=== PATIENT | female | born 1965 | race Caucasian/White ===

== ENCOUNTER → 2016-07-18 | Outpatient (CLI) | payer MEDICARE, OTHER ==
[2016-07-18 13:56] VITALS: BP 144/68; PULSE 53; RESP 14; TEMP 98.4
[2016-07-18 15:03] VITALS: BMI 39.2
--- NOTE | 2016-09-02 21:34 | P.PN ---
Progress Note - Text DATE OF SERVICE: 07/18/2016 CHIEF COMPLAINT: Follow-up gastric bypass. HISTORY OF PRESENT ILLNESS: Yessy Buchanan is a 51-year-old female who is status post Mynor-en-Y gastric bypass in May 24, 2015. She is more than a year and a few months out. At her height of 5 feet 4-3/4 inches frame her highest weight was 341 pounds. Today she comes in weighing 235 pounds. Her ideal body weight is 149 pounds. She has lost 106 pounds. Percent excess weight loss is 55%. Body mass index is reduced from 57.3 down to 39.4. Total BMI point reduction is 17.8. Since her last visit now 3 months ago, she has lost another 5 pounds. She reports that she is no longer drinking pop. She has decreased her intake of sugar. She reports no more problems with falling or fainting. She denies any further constipation. No reports of dumping syndrome. Her personal goal is to lose another 40 pounds. She denies any gastroesophageal reflux disease. Her diabetes is completely resolved. She now reports new onset headaches. PAST MEDICAL HISTORY: 1. Diabetes type 2, resolved. 2. Osteoarthritis of the bilateral knees. 3. Osteoarthritis of the lower back. 4. Iron deficiency anemia. 5. Chronic recurrent deep venous thromboses over 4 events. 6. Depression. 7. Vitamin D deficiency. 8. Vitamin B12 deficiency. 9. History of brain disorder with cysts requiring surgery. 10. Gastroesophageal reflux disease, resolved. 11. History obstructive sleep apnea, improved. PAST SURGICAL HISTORY: 1. She reports lithotripsy for kidney stones at least 5 times. 2. Hysterectomy. 3. Tonsillectomy. 4. Bilateral cataract eye extraction. 5. Removal of benign growths along the scalp. 6. History of fatty tumor removal from the left shoulder. 7. Status post Mynor-en-Y gastric bypass. 8. Colonoscopy. MEDICATIONS: 1. Xarelto. 2. MiraLax. 3. Paxil. 4. Multivitamin. 5. Vitamin D. 6. Calcium citrate. 7. Dulcolax. 8. Aspirin. ALLERGIES: 1. COMPAZINE. 2. GEODON. 3. TOMATOES. SOCIAL HISTORY: Former tobacco user. FAMILY HISTORY: Pertinent for morbid obesity including gallbladder disease. REVIEW OF SYSTEMS: CONSTITUTIONAL: Highest weight of 341 pounds for a 5 foot 4-3/4 inches. Weight is reduced to 235 pounds. [place] body weight of 149 pounds. Weight loss of 106 pounds. Percent excess weight loss of 55%. She still is 86 pounds overweight. Body mass index reduced from 57.3 down to 39.5. Total BMI point reduction is 17.8. ENDOCRINE: Resolved diabetes type 2. GASTROINTESTINAL: No reports of dumping syndrome. Gastroesophageal reflux disease, resolved. RESPIRATORY: Improved obstructive sleep apnea. MUSCULOSKELETAL: Reports diffuse osteoarthritis of the lower back. NEURO: Reports dizziness. She has had previous MRI work-up negative for acute stroke. PSYCH: History of adverse event from Paxil for which she is being changed to different antidepressant. HEMATOLOGIC: History of prior blood clots, which she has undergone evaluation with her construction accountant and has been advised to continue during the perioperative period. HEENT: Denies any troubles with vision or hearing. CARDIOVASCULAR: History of heart arrhythmia. PHYSICAL EXAM: VITAL SIGNS: 98.4, 53, 14, 144/68; 5 feet 4-3/4 inches, weighing 235 pounds. Body mass index 39.5. ABDOMEN: Soft, nontender, nondistended. Pannus extends over pubis over 5 cm. No palpable incisional hernias. Mild panniculitis. MUSCULOSKELETAL: No clubbing, cyanosis, or edema. NEURO: No focal or lateralizing signs. Cranial nerves II through XII grossly within normal limits. GENERAL: Well-developed, pleasant female in no acute distress. CHEST: Nonlabored respirations. Equal bilateral excursions. CARDIOVASCULAR: Regular rate and rhythm. HEENT: No sclerae icterus. Extraocular movements are grossly intact. Moist buccal mucosa. NECK: Supple without lymphadenopathy. PSYCH: Appropriate affect. Alert and oriented to person, place and time. Labs are: Previous labs demonstrate hemoglobin was 12.8. Current labs are pending. ASSESSMENT: 1. Morbid obesity due to excess caloric intake. 2. Body mass index reduced from 57.3 down to 39.5. 3. Status post Mynor-en-Y gastric bypass. 4. Diabetes type 2, resolved. 5. Gastroesophageal reflux disease, resolved. 6. Hypertensive heart disease with history of cardiomyopathy, chronic. 7. Depression without recent psychosis. 8. Osteoarthritis of the knees secondary to morbid obesity. 9. History of thromboembolic events. 10. Hypertriglyceridemia. 11. Obstructive sleep apnea, improved. 12. Thiamine deficiency. 13. Chronic constipation. 14. Secondary hyperparathyroidism. 15. Low TSH. 16. History of right upper quadrant abdominal pain. 17. Status post massive weight loss 106 pounds. 18. History of dizziness with possible vestibular problem. 19. Chronic lower back pain. PLAN: 1. On exam she has panniculitis, recommend nystatin powder. 2. She is seeking additional weight loss, which would be of benefit. She has already lost over 105 pounds. 3. She does reports trouble sleeping at night including headaches. She actually should benefit from re-evaluation of obstructive sleep apnea with sleep study. 4. Recommend close observation until her goal weight loss is achieved. 5. Recommended follow-up in 3 to 5 months.
== END | disposition home or self-care (01) ==
LOC: BARWHC3 13:16
PROVIDERS: ATTEND Surgery Plastic and Reconstructive Surgery
DX: Z71.3 Dietary counseling and surveillance (principal); Z68.39 Body mass index [BMI] 39.0-39.9, adult; E66.01 Morbid (severe) obesity due to excess calories
CPT/HCPCS: 97803; G0463; 99211

== ENCOUNTER 2016-10-03 15:11 | Inpatient (IN) | payer MEDICARE, OTHER ==
[2016-10-03 16:38] VITALS: RESP 16
[2016-10-03 17:06] VITALS: BMI 39.8
[2016-10-03] MEDS ORDERED: ONDANSETRON 4 MG/2 ML VIAL IVP PRN (17:41)
[2016-10-03] MEDS ORDERED: NALOXONE 0.4 MG/ML 1 ML VIAL IV PRN (17:41)
[2016-10-03] MEDS ORDERED: SODIUM CHLORIDE 0.9% 2,000 ML IV ONE (17:58)
--- NOTE | 2016-10-03 18:20 | XR ---
EXAMINATION TYPE: XR abdomen 2V DATE OF EXAM: 10/03/2016 6:10 PM COMPARISON: NONE HISTORY: Abdominal pain TECHNIQUE: 3 views FINDINGS: There is no sign of intestinal obstruction or pneumoperitoneum. Fecal pattern is normal. Th ere are clips from cholecystectomy. There is no evidence of a mass. There are phleboliths in the pelv is. Lung bases are clear. There are no pathologic calcifications over the kidneys. IMPRESSION: Nonacute abdomen.
[2016-10-03 19:30] LABS: Magnesium 1.6 mg/dL (1.6-2.3); Phosphorous 3.3 mg/dL (2.5-4.5)
[2016-10-03] MEDS: PARoxetine 20 MG TAB PO SCH (23:16)
[2016-10-03 23:28] LABS: Basophils % (A) 1 %; Eosinophils # (A) 0.2 k/uL (0-0.7); Eosinophils % (A) 4 %; HCT 36.8 % (34.0-46.0); HDW 2.13; HGB 11.4 gm/dL (11.4-16.0); Luc # (Auto) 0.15; Luc % (Auto) 2; Lymphocytes # (A) 2.1 k/uL (1.0-4.8); Lymphocytes % (A) 34 %; MCH 27.3 pg (25.0-35.0); Mean Platelet Volume 8.7; Monocytes # (A) 0.5 k/uL (0-1.0); Monocytes % (A) 8 %; Neutrophils # (A) 3.2 k/uL (1.3-7.7); Neutrophils % (A) 52 %; RBC 4.18 m/uL (3.80-5.40); RDW 14.6 % (11.5-15.5); WBC 6.1 k/uL (3.8-10.6); WBC (Perox) 5.94
[2016-10-03 23:33] LABS: INR 1.2 (<1.1); Partial Thromboplastin Time 24.1 sec (22.0-30.0); Prothrombin Time 11.5 sec (9.0-12.0)
[2016-10-03 23:37] LABS: ALT 23 U/L (9-52); AST 21 U/L (14-36); Alkaline Phosphatase 73 U/L (38-126); Anion Gap 6 mmol/L; Blood Urea Nitrogen 10 mg/dL (7-17); Calcium 8.9 mg/dL (8.4-10.2); Carbon Dioxide 28 mmol/L (22-30); Chloride 105 mmol/L (98-107); Glucose 97 mg/dL (74-99); Non-African American GFR(MDRD) >60 (>60 ml/min/1.73 sqM); Potassium 3.6 mmol/L (3.5-5.1); Sodium 139 mmol/L (137-145); Total Bilirubin 0.6 mg/dL (0.2-1.3); Total Protein 6.1 g/dL (6.3-8.2)
[2016-10-04] MEDS: SODIUM CHLORIDE 0.9% 1,000 ML IV SCH (07:13)
[2016-10-04 07:32] LABS: Basophils % (A) 1 %; CH 27.7; CHCM 31.6; Eosinophils # (A) 0.2 k/uL (0-0.7); Eosinophils % (A) 5 %; HCT 35.4 % (34.0-46.0); HDW 2.08; HGB 11.3 gm/dL (11.4-16.0); Luc # (Auto) 0.14; Luc % (Auto) 3; Lymphocytes # (A) 1.7 k/uL (1.0-4.8); Lymphocytes % (A) 36 %; MCHC 31.8 g/dL (31.0-37.0); MCV 88.1 fL (80.0-100.0); Mean Platelet Volume 8.7; Monocytes # (A) 0.4 k/uL (0-1.0); Monocytes % (A) 8 %; Neutrophils # (A) 2.3 k/uL (1.3-7.7); Neutrophils % (A) 48 %; RBC 4.02 m/uL (3.80-5.40); RDW 14.5 % (11.5-15.5); WBC 4.8 k/uL (3.8-10.6); WBC (Perox) 4.83
[2016-10-04] MEDS: ENOXAPARIN 40 MG/0.4 ML SYRINGE SQ SCH (07:41)
[2016-10-04] MEDS: PANTOPRAZOLE 40 MG/10 ML VIAL IV SCH (07:41)
[2016-10-04] MEDS: ASPIRIN 81 MG CHEW PO SCH (07:41)
[2016-10-04 07:49] LABS: Hemoglobin A1C 5.6 % (4.2-6.1)
[2016-10-04 08:03] LABS: ALT 28 U/L (9-52); AST 18 U/L (14-36); Alkaline Phosphatase 73 U/L (38-126); Anion Gap 6 mmol/L; Blood Urea Nitrogen 8 mg/dL (7-17); Calcium 8.4 mg/dL (8.4-10.2); Carbon Dioxide 27 mmol/L (22-30); Chloride 108 mmol/L (98-107); Glucose 83 mg/dL (74-99); Magnesium 1.5 mg/dL (1.6-2.3); Non-African American GFR(MDRD) >60 (>60 ml/min/1.73 sqM); Phosphorous 3.8 mg/dL (2.5-4.5); Potassium 3.6 mmol/L (3.5-5.1); Sodium 141 mmol/L (137-145); Total Bilirubin 0.6 mg/dL (0.2-1.3); Total Protein 5.6 g/dL (6.3-8.2)
[2016-10-04] MEDS ORDERED: RX INFO: IV CONTRAST WAS GIVEN 1 EACH MISC MISCELLANE PRN (08:09)
--- NOTE | 2016-10-04 08:18 | P.GSHP ---
History of Present Illness H&P Date: 10/03/16 Chief Complaint: Abdominal pain with history of bowel obstruction CHIEF COMPLAINT: Abdominal pain with history of bowel obstruction HISTORY OF PRESENT ILLNESS: Yessy Buchanan is a 51-year-old female who is status post Mynor-en-Y gastric bypass in May 24, 2015. At her height of 5 feet 4-3/4 inches frame her highest weight was 341 pounds. Today she comes with 120 pound weight loss. She reports one-month history of intermittent abdominal pain of the right lower quadrant including right upper quadrant. She states the pain is pulling tugging sensation. She reports at the time of her abdominal pain, she has inability to eat or drink. She reports poor fluid intake in the last several days including chronic nausea. She reports intermittent abdominal gas bloat for which she had gone to her local ER in [place] for similar issues. Now she presents moderate severe abdominal pain including poor oral intake. PAST MEDICAL HISTORY: 1. Diabetes type 2, resolved. 2. Osteoarthritis of the bilateral knees. 3. Osteoarthritis of the lower back. 4. Iron deficiency anemia. 5. Chronic recurrent deep venous thromboses over 4 events. 6. Depression. 7. Vitamin D deficiency. 8. Vitamin B12 deficiency. 9. History of brain disorder with cysts requiring surgery. 10. Gastroesophageal reflux disease, resolved. 11. History obstructive sleep apnea, improved. PAST SURGICAL HISTORY: 1. She reports lithotripsy for kidney stones at least 5 times. 2. Hysterectomy. 3. Tonsillectomy. 4. Bilateral cataract eye extraction. 5. Removal of benign growths along the scalp. 6. History of fatty tumor removal from the left shoulder. 7. Status post Mynor-en-Y gastric bypass. 8. Colonoscopy. MEDICATIONS: See list. ALLERGIES: 1. COMPAZINE. 2. GEODON. 3. TOMATOES. SOCIAL HISTORY: Former tobacco user. FAMILY HISTORY: Pertinent for morbid obesity including gallbladder disease. REVIEW OF SYSTEMS: CONSTITUTIONAL: Highest weight of 341 pounds for a 5 foot 4-3/4 inches. [place] body weight of 149 pounds. ENDOCRINE: Resolved diabetes type 2. GASTROINTESTINAL: No reports of dumping syndrome. Gastroesophageal reflux disease, resolved. Now with history of bowel obstruction. RESPIRATORY: Improved obstructive sleep apnea. MUSCULOSKELETAL: Reports diffuse osteoarthritis of the lower back. NEURO: Reports dizziness. She has had previous MRI work-up negative for acute stroke. PSYCH: History of adverse event from Paxil for which she is being changed to different antidepressant. HEMATOLOGIC: History of prior blood clots, which she has undergone evaluation with her interlocking tower operator and has been advised to continue during the perioperative period. HEENT: Denies any troubles with vision or hearing. CARDIOVASCULAR: History of heart arrhythmia. PHYSICAL EXAM: VITAL SIGNS: Stable. ABDOMEN: Soft with tenderness along the right upper quadrant and right lower quadrant. No peritoneal signs. Mild abdominal distention. MUSCULOSKELETAL: No clubbing, cyanosis, or edema. NEURO: No focal or lateralizing signs. Cranial nerves II through XII grossly within normal limits. GENERAL: Well-developed, pleasant female in no acute distress. CHEST: Nonlabored respirations. Equal bilateral excursions. CARDIOVASCULAR: Regular rate and rhythm. HEENT: No sclerae icterus. Extraocular movements are grossly intact. Moist buccal mucosa. NECK: Supple without lymphadenopathy. PSYCH: Appropriate affect. Alert and oriented to person, place and time. SKIN: Skin turgor consistent with acute dehydration. Labs: PENDING ASSESSMENT: 1. Right upper quadrant abdominal pain. 2. Right lower quadrant abdominal pain. 3. History of bowel obstruction. 4. History of gastric bypass with risk of intussusception, volvulus and intestinal adhesions. 5. Morbid obesity due to excess caloric intake. PLAN: 1. Recommend inpatient admission anticipated over 2 nights with history of bowel obstruction as well as increasing abdominal pain and dehydration. 2. Recommend IV fluid hydration. 3. Abdominal films with CT of the abdomen pelvis to follow. 4. Recommend surgical intervention with laparoscopic list of adhesions possible bowel resection. 5. DVT prophylaxis. 6. Antibiotic prophylaxis. 7. Comprehensive metabolic panel including CBC and correction of electrolytes. Past Medical History Past Medical History: Diabetes Mellitus, Deep Vein Thrombosis (DVT), Pulmonary Embolus (PE), Skin Disorder, Sleep Apnea/CPAP/BIPAP Additional Past Medical History / Comment(s): ESTHER ANKLE/foot swelling, heart murmur, kidney stones, wears O2 at night at 2L. VARICOSE VEIN POSS. COLD SORE ON UPPER LIP. RECOVERING FROM BED BUGS, CLEARED BY DR LAST WEEK WHEN HERE. History of Any Multi-Drug Resistant Organisms: None Reported Past Surgical History: Bariatric Surgery, Hysterectomy, Tonsillectomy Additional Past Surgical History / Comment(s): cataract removal both eyes, benign growths removed from head, fatty tumor removed from left shoulder, lithotripsy x5, Mynor-en Y-Gastric bypass 05-24-2015 Past Anesthesia/Blood Transfusion Reactions: Family History of Problems w/ Anesthesia, Motion Sickness Additional Past Anesthesia/Blood Transfusion Reaction / Comment(s): BROTHER HAS PROBLEMS, SLOW AWAKENING FROM ANESTHESIA. Past Psychological History: Anxiety, Depression Smoking Status: Never smoker Past Alcohol Use History: None Reported Additional Past Alcohol Use History / Comment(s): SMOKED SOCIALLY [id number] EST. Past Drug Use History: None Reported - Past Family History Father History Unknown: Yes Family Medical History: No Reported History Mother Family Medical History: Congestive Heart Failure (CHF), Diabetes Mellitus, Hypertension Additional Family Medical History / Comment(s): mental disorder, alcoholism, Medications and Allergies Home Medications Medication Instructions Recorded Confirmed Type Aspirin 81 mg PO DAILY 12/08/14 10/03/16 History Multivitamins, Thera [Multivitamin] 1 tab PO DAILY 07/06/15 10/03/16 History PARoxetine HCL [Paxil] 20 mg PO HS 07/18/16 10/03/16 History Calcium Citrate 500 mg PO TID 10/03/16 10/03/16 History Allergies Allergy/AdvReac Type Severity Reaction Status Date / Time metoclopramide HCl AdvReac Unknown Verified 10/03/16 19:28 [From Reglan] prochlorperazine edisylate AdvReac Unknown Verified 10/03/16 19:28 [From Compazine] prochlorperazine maleate AdvReac Unknown Verified 10/03/16 19:28 [From Compazine] ziprasidone HCl [From Geodon] AdvReac Unknown Verified 10/03/16 19:28 ziprasidone mesylate AdvReac Unknown Verified 10/03/16 19:28 [From Geodon] bleach AdvReac Dyspnea Uncoded 10/03/16 14:13 tomatoes AdvReac Itching Uncoded 10/03/16 14:13 Surgical - Exam Vital Signs Temp Pulse Resp BP Pulse Ox 97.7 F 55 L 16 126/60 98 10/03/16 16:36 10/03/16 16:36 10/03/16 16:36 10/03/16 16:36 10/03/16 16:36 Results - Labs 10/04/16 06:33 10/04/16 06:33 Abnormal Lab Results - Last 24 Hours (Table) 10/03/16 10/04/16 10/04/16 Range/Units 23:14 06:33 06:33 Hgb 11.3 L (11.4-16.0) gm/dL Chloride 108 H (98-107) mmol/L Creatinine 0.40 L 0.43 L (0.52-1.04) mg/dL Magnesium 1.5 L (1.6-2.3) mg/dL Total Protein 6.1 L 5.6 L (6.3-8.2) g/dL Albumin 3.3 L 2.9 L (3.5-5.0) g/dL Diabetes panel 10/03/16 10/03/16 10/04/16 Range/Units 23:14 23:14 06:33 Sodium 139 141 (137-145) mmol/L Potassium 3.6 3.6 (3.5-5.1) mmol/L Chloride 105 108 H (98-107) mmol/L Carbon Dioxide 28 27 (22-30) mmol/L BUN 10 8 (7-17) mg/dL Creatinine 0.40 L 0.43 L (0.52-1.04) mg/dL Glucose 97 83 (74-99) mg/dL Hemoglobin A1c 5.6 (4.2-6.1) % Calcium 8.9 8.4 (8.4-10.2) mg/dL AST 21 18 (14-36) U/L ALT 23 28 (9-52) U/L Alkaline Phosphatase 73 73 (38-126) U/L Total Protein 6.1 L 5.6 L (6.3-8.2) g/dL Albumin 3.3 L 2.9 L (3.5-5.0) g/dL Calcium panel 10/03/16 10/03/16 10/04/16 Range/Units 19:01 23:14 06:33 Calcium 8.9 8.4 (8.4-10.2) mg/dL Phosphorus 3.3 3.8 (2.5-4.5) mg/dL Albumin 3.3 L 2.9 L (3.5-5.0) g/dL Pituitary panel 10/03/16 10/04/16 Range/Units 23:14 06:33 Sodium 139 141 (137-145) mmol/L Potassium 3.6 3.6 (3.5-5.1) mmol/L Chloride 105 108 H (98-107) mmol/L Carbon Dioxide 28 27 (22-30) mmol/L BUN 10 8 (7-17) mg/dL Creatinine 0.40 L 0.43 L (0.52-1.04) mg/dL Glucose 97 83 (74-99) mg/dL Calcium 8.9 8.4 (8.4-10.2) mg/dL Adrenal panel 10/03/16 10/04/16 Range/Units 23:14 06:33 Sodium 139 141 (137-145) mmol/L Potassium 3.6 3.6 (3.5-5.1) mmol/L Chloride 105 108 H (98-107) mmol/L Carbon Dioxide 28 27 (22-30) mmol/L BUN 10 8 (7-17) mg/dL Creatinine 0.40 L 0.43 L (0.52-1.04) mg/dL Glucose 97 83 (74-99) mg/dL Calcium 8.9 8.4 (8.4-10.2) mg/dL Total Bilirubin 0.6 0.6 (0.2-1.3) mg/dL AST 21 18 (14-36) U/L ALT 23 28 (9-52) U/L Alkaline Phosphatase 73 73 (38-126) U/L Total Protein 6.1 L 5.6 L (6.3-8.2) g/dL Albumin 3.3 L 2.9 L (3.5-5.0) g/dL
[2016-10-04] MEDS: IOHEXOL 350 MG/ML 25 ML BOTTLE (ORAL USE) PO PRN ×2 (08:38→09:23)
--- NOTE | 2016-10-04 11:16 | CT ---
EXAMINATION TYPE: CT abdomen pelvis w con DATE OF EXAM: 10/04/2016 11:07 AM COMPARISON: NONE HISTORY: Jc with nausea CT DLP: 2301.3 mGycm CONTRAST: CT scan of the abdomen and pelvis is performed with Oral Contrast and with IV Contrast, patient injec jackie with 100 mL of Omnipaque 300. FINDINGS: LUNG BASES-: No visible nodule. No infiltrate. Small bilateral pleural effusions are noted. There is evidence of mild cardiomegaly. LIVER/GB: Cholecystectomy clips are in place. No space occupying hepatic lesion. Biliary tree is o f normal caliber. PANCREAS: No inflammation. No distinct mass. SPLEEN: No splenic enlargement. No lesion seen. ADRENALS: No nodule. No thickening. KIDNEYS/BLADDER: No hydronephrosis. No nephrolithiasis. No disctinct renal mass. Urinary bladder g rossly unremarkable. BOWEL: Normal appendix. Normal bowel caliber. No inflammation. Gastric bypass procedure noted. No e vidence for leak or abscess. No obstructive change seen. GENITAL ORGANS: 2.1 cm left ovarian cyst. Changes of prior hysterectomy. LYMPH NODES: No greater than 1cm abdominal or pelvic lymph nodes are appreciated. AORTA: No significant abnormality. OSSEOUS STRUCTURES: No significant abnormality is seen. OTHER: No significant additional abnormality is seen. IMPRESSION: 1. Gastric bypass procedure without complicating factor. 2. Small pleural effusions. 3. Nonspecific left ovarian cyst.
--- NOTE | 2016-10-04 11:53 | P.PN ---
Subjective A 51-year-old female being seen this morning and examined. Patient states abdominal pain feels improved. Patient points to the reference point of the right upper quadrant as to where the pain has been. Patient is a history of having for the last month intermittent abdominal discomfort in the right lower quadrant radiating to the right upper. Patient states that she's had chronic nausea sensation. Patient does state that she is tolerating the diet no stool but is passing gas rectally Patient is status post claudia-en-Y gastric bypass done in April 2015. Patient has lost a total of 120 pounds since the surgery. The CAT scan of the abdomen and pelvis shows gastric bypass procedure without comp looking factor small pleural effusion no acute findings Objective - Vital Signs Vital signs: Vital Signs Temp 98.3 F 10/04/16 07:37 Pulse 49 L 10/04/16 08:00 Resp 16 10/04/16 08:00 BP 137/72 10/04/16 07:37 Pulse Ox 96 10/04/16 07:37 Intake & Output 10/03/16 10/04/16 10/04/16 18:59 06:59 18:59 Intake Total 180 Balance 180 Weight 105.233 kg 105.233 kg Intake: Oral 180 Other: # Voids 2 2 - Exam Physical exam 51-year-old female resting in bed does not appear in acute distress pleasant cooperative Lungs essentially clear adequate air movement on room air Heart S1-S2 audible regular Abdomen obese soft nontender bowel tones present no reports of nausea vomiting urinating no difficulty Extremities no edema - Labs CBC & Chem 7: 10/04/16 06:33 10/04/16 06:33 Labs: Abnormal Lab Results - Last 24 Hours (Table) 10/03/16 10/04/16 10/04/16 Range/Units 23:14 06:33 06:33 Hgb 11.3 L (11.4-16.0) gm/dL Chloride 108 H (98-107) mmol/L Creatinine 0.40 L 0.43 L (0.52-1.04) mg/dL Magnesium 1.5 L (1.6-2.3) mg/dL Total Protein 6.1 L 5.6 L (6.3-8.2) g/dL Albumin 3.3 L 2.9 L (3.5-5.0) g/dL Assessment and Plan Plan: Impression Present on admission right upper and lower intermittent quadrant abdominal pain History of a bowel obstruction Morbid obesity due to excessive caloric intake History of gastric bypass with risk of intussusception, volvulus and intestinal adhesions. And deficiency anemia Osteoarthritis of the bilateral knees Chronic recurrent DVTs over 4 events Gastroesophageal reflux disease resolved Obstructive sleep apnea improved Plan DVT and GI prophylaxis on Lovenox and protonix IV fluid 115 hours Scheduled for a laparoscopic lysis of adhesions possible bowel resection on the 05 of October Pain control Further recommendations pending will follow The above dictated assessment and findings were discussed with dr glasgow Impression and the plan of care have been dictated as directed. Gracie Deutsch nurse practitioner acting as a scribe for dr glasgow
[2016-10-04 16:55] LABS: Total Iron Binding Capacity 264 ug/dL (265-497)
[2016-10-04] MEDS: MAGNESIUM SULFATE-D5W PMX 1 GM in DEXTROSE/WATER 1 100ML.BAG IVPB SCH ×2 (17:08→18:28)
[2016-10-04 17:36] LABS: Vitamin B12 593 pg/mL (239-931)
[2016-10-04] MEDS: HYDROmorphone 1 MG/ML 1 ML SYRINGE IV PRN (23:32)
[2016-10-04] MEDS: PARoxetine 20 MG TAB PO SCH (23:43)
[2016-10-05] MEDS ORDERED: MIDAZOLAM 2 MG/2 ML VIAL IV PRN (06:01)
[2016-10-05] MEDS ORDERED: LACTATED RINGERS 1,000 ML IV SCH (06:01)
[2016-10-05] MEDS: PANTOPRAZOLE 40 MG/10 ML VIAL IV SCH (07:52)
[2016-10-05] MEDS: HYDROmorphone 1 MG/ML 1 ML SYRINGE IV PRN ×2 (10:51→15:03)
[2016-10-05] MEDS ORDERED: ACETAMINOPHEN IV (For NPO) 1,000 MG in EMPTY BAG 1 BAG IVPB PRN (10:54)
[2016-10-05] MEDS: SODIUM CHLORIDE 0.9% 1,000 ML IV SCH (15:05)
[2016-10-05] MEDS: ASPIRIN 81 MG CHEW PO SCH (15:08)
[2016-10-05] MEDS: ENOXAPARIN 40 MG/0.4 ML SYRINGE SQ SCH (15:08)
[2016-10-05] MEDS: MAGNESIUM SULFATE-D5W PMX 1 GM in DEXTROSE/WATER 1 100ML.BAG IVPB SCH (15:10)
[2016-10-05 15:33] VITALS: BP 128/68; PULSE 52; TEMP 97.9
--- NOTE | 2016-10-05 16:31 | P.PN ---
Progress Note - Text Patient seen and evaluated. Abdominal pain has improved. Patient was scheduled to undergo laparoscopic lysis of adhesions with possible bowel resection. As patient is clinically improved, will discharge. We'll set up for elective diagnostic laparoscopy in 1 week.
[2016-10-05 16:49] LABS: Vitamin D, 1, 25-Dihydroxy 66 pg/mL (20 - 79)
--- NOTE | 2016-10-05 21:31 | P.DS ---
Providers Date of admission: 10/03/16 16:15 Expected date of discharge: 10/05/16 Attending physician: Blanka Cota Primary care physician: Stated None - Discharge Diagnosis(es) (1) Abdominal pain Status: Acute (2) Peritoneal adhesions Status: Acute (3) Small bowel obstruction Status: Acute (4) Hypomagnesemia Status: Acute (5) Morbid obesity Status: Acute (6) Status post gastric bypass for obesity Status: Acute Hospital Course: The patient is a 51-year-old female who initially presented to the bariatric program for her yearly follow-up. She reports over month history of abdominal pain diffuse however more severe along the right upper and right lower quadrant. She had been seen by her local ER in [facility] for similar complaints. She reports intolerance of oral intake. She also reports troubles with maintaining a diet. She has history of intra-abdominal adhesions including bowel obstruction. Secondary to her clinical history and presentation , she was admitted for bowel obstruction. She was placed on IV fluid hydration. Metabolic workup demonstrated zinc deficiency as well as hypomagnesemia. Her low magnesia was corrected. Multiple studies including x-rays and CT scans were obtained demonstrating no closed loop bowel obstruction. She was initially scheduled to undergo surgery however as her abdominal pain had improved. She was started on diet. As her abdominal pain had improved, the patient had tolerated diet and was stable for discharge. Vital Signs Temp 97.9 F 10/05/16 15:00 Pulse 52 L 10/05/16 15:00 Resp 16 10/05/16 15:00 BP 128/68 10/05/16 15:00 Pulse Ox 98 10/05/16 15:00 Intake & Output 10/05/16 10/05/16 10/06/16 06:59 18:59 06:59 Intake Total 1050 Balance 1050 Intake: IV 1050 Sodium Chloride 0.9% 1, 1050 000 ml @ 150 mls/hr IV . Q6H40M [facility] Rx#:[id number] Other: # Voids 3 GENERAL: Well developed and in no acute distress. Pleasant. HEENT: No sclera icterus. Extraocular movements grossly intact. Moist buccal mucosa. Head is atraumatic, normocephalic. Hears conversational speech. No nasal drainage. NECK: Supple without lymphadenopathy. No JV distention. CHEST: Non-labored respirations and equal bilateral excursions. CARDIOVASCULAR: Regular rate and rhythm. Palpable 2+ radial pulses. ABDOMEN: Soft. Nondistended. Mild tenderness along the right upper quadrant and right lower quadrant. No peritonitis. MUSCULOSKELETAL: No clubbing, cyanosis or edema. NEUROLOGIC: No focal or lateralizing signs. PSYCH: Appropriate affect. Alert and oriented to person, place and time. Pertinent Studies: CT of the abdomen and pelvis demonstrating no free air or perforated bowel. Abdominal x-ray demonstrating nonspecific bowel pattern. Procedures: None. Patient Condition at Discharge: Stable Plan - Discharge Summary Discharge Medication List Aspirin 81 mg PO DAILY 12/08/14 [History] Multivitamins, Thera [Multivitamin] 1 tab PO DAILY 07/06/15 [History] PARoxetine HCL [Paxil] 20 mg PO HS 07/18/16 [History] Calcium Citrate 500 mg PO TID 10/03/16 [History] Follow up Appointment(s)/Referral(s): Blanka Cota MD [STAFF PHYSICIAN] - 10/12/16 (Surgery on October 12) Patient Instructions/Handouts: Acute Abdominal Pain (DC) Activity/Diet/Wound Care/Special Instructions: Diet as tolerated Follow up with physician as directed Call office with any questions or concerns take medications as directed activity as tolerated Discharge Disposition: HOME SELF-CARE
[2016-10-09 16:40] LABS: Selenium 108 mcg/L (63-160)
== END 2016-10-05 19:25 | disposition home or self-care (01) | DRG 390 ==
LOC: 3SUR 16:15
PROVIDERS: ADMIT Surgery Plastic and Reconstructive Surgery; ATTEND Surgery Plastic and Reconstructive Surgery
DX: K56.5 Intestinal adhesions [bands] with obstruction (postinfection) (principal); Z99.81 Dependence on supplemental oxygen; E83.42 Hypomagnesemia; E60 Dietary zinc deficiency; E86.0 Dehydration; G47.33 Obstructive sleep apnea (adult) (pediatric); F41.9 Anxiety disorder, unspecified; R11.0 Nausea; I83.90 Asymptomatic varicose veins of unspecified lower extremity; D50.9 Iron deficiency anemia, unspecified; M47.816 Spondylosis without myelopathy or radiculopathy, lumbar region; E66.01 Morbid (severe) obesity due to excess calories; M17.0 Bilateral primary osteoarthritis of knee; F32.9 Major depressive disorder, single episode, unspecified; Z87.442 Personal history of urinary calculi; Z82.49 Family history of ischemic heart disease and other diseases of the circulatory system; Z83.3 Family history of diabetes mellitus; Z98.84 Bariatric surgery status; Z79.82 Long term (current) use of aspirin; Z79.899 Other long term (current) drug therapy; Z87.891 Personal history of nicotine dependence; Z86.718 Personal history of other venous thrombosis and embolism; Z86.711 Personal history of pulmonary embolism; Z87.19 Personal history of other diseases of the digestive system; Z88.8 Allergy status to other drugs, medicaments and biological substances; Z91.018 Allergy to other foods; Z91.048 Other nonmedicinal substance allergy status; Z81.8 Family history of other mental and behavioral disorders; Z81.1 Family history of alcohol abuse and dependence; Z90.710 Acquired absence of both cervix and uterus; Z98.42 Cataract extraction status, left eye; Z98.41 Cataract extraction status, right eye; Z68.39 Body mass index [BMI] 39.0-39.9, adult; Z86.39 Personal history of other endocrine, nutritional and metabolic disease; Z86.19 Personal history of other infectious and parasitic diseases; Z86.69 Personal history of other diseases of the nervous system and sense organs
CPT/HCPCS: 74020; 74177; 80053; 82150; 82525; 82607; 82652; 82728; 83036; 83550; 83690; 83735; 83970; 84100; 84255; 84425; 84590; 84630; 85025; 85610; 85730; 99211

== ENCOUNTER → 2016-10-03 | Outpatient (CLI) | payer MEDICARE, OTHER ==
[2016-10-03 14:25] VITALS: BP 120/68; PULSE 57; RESP 16; TEMP 98.3; BMI 38.9
--- NOTE | 2016-11-22 12:05 | P.PN ---
Progress Note - Text DATE OF SERVICE: 10/03/2016 CHIEF COMPLAINT: Followup gastric bypass. HISTORY OF PRESENT ILLNESS: Yessy Buchanan is a 51-year-old female who is status post Mynor-en-Y gastric bypass May 24, 2015. She is well over a year plus out. At her height of 5 feet 4-3/4 inch frame, she comes in today weighing 232 pounds. Her highest weight was 341 pounds. Her ideal body weight is 144 pounds. She has maintained 109 pound weight loss. Body mass index reduced from 57.3 down to 39. Percent excess weight loss is 55%. Since her last visit 3 months ago she has actually lost another 3 pounds. She comes in today primarily of a pulling sensation along the right upper quadrant. In fact, she had been seen at an outside institution where she went to the emergency room and her findings were unremarkable. She still reports intermittent abdominal pain. She reports her personal goal is to get under 200 pounds in the interim. She also comes in complaining of diarrhea. Given the severe abdominal pain, now she presents for further evaluation and management. PAST MEDICAL HISTORY: 1. Diabetes type 2, resolved. 2. Osteoarthritis of the bilateral knees. 3. Osteoarthritis of the lower back. 4. Iron deficiency anemia. 5. Chronic recurrent deep venous thromboses over 4 events. 6. Depression. 7. Vitamin D deficiency. 8. Vitamin B12 deficiency. 9. History of brain disorder with cysts requiring surgery. 10. Gastroesophageal reflux disease, resolved. 11. History obstructive sleep apnea, improved. PAST SURGICAL HISTORY: 1. She reports lithotripsy for kidney stones at least 5 times. 2. Hysterectomy. 3. Tonsillectomy. 4. Bilateral cataract eye extraction. 5. Removal of benign growths along the scalp. 6. History of fatty tumor removal from the left shoulder. 7. Status post Mynor-en-Y gastric bypass. 8. Colonoscopy. MEDICATIONS: 1. Paxil. 2. Multivitamin. 3. Calcium citrate. 4. Aspirin. ALLERGIES: 1. COMPAZINE. 2. GEODON. 3. TOMATOES. SOCIAL HISTORY: Former tobacco user. FAMILY HISTORY: Pertinent for morbid obesity including gallbladder disease. REVIEW OF SYSTEMS: CONSTITUTIONAL: [place] body weight of 144 pounds. Highest weight 341 pounds. Present weight 232 pounds. Present weight loss of 109 pounds. Percent excess weight loss is 55%. Body mass index is reduced from 57.3 down to 39. GASTROINTESTINAL: Denies any dumping syndrome. She reports intermittent abdominal pain and cramping which is becoming progressive. She denies any relationship to her eating foods. Separately, she reports intermittent diarrhea. ENDOCRINE: Resolved diabetes type 2. No thyroid disorder. RESPIRATORY: Improved obstructive sleep apnea. MUSCULOSKELETAL: Reports diffuse osteoarthritis of the lower back. NEURO: Reports dizziness. She has had previous MRI work-up negative for acute stroke. PSYCH: History of adverse event from Paxil for which she is being changed to different antidepressant. HEMATOLOGIC: History of prior blood clots. HEENT: Denies any troubles with vision or hearing. CARDIOVASCULAR: History of heart arrhythmia. PHYSICAL EXAM: VITAL SIGNS: 98.3, 57, 16, 120/68, 5 foot 4-3/4 inch frame, 232 pounds. Body mass index is 39. ABDOMEN: Soft without peritoneal signs; however, focal tenderness noted along the right upper quadrant. Pannus extends over pubis over 5 cm. Mild panniculitis. MUSCULOSKELETAL: No clubbing, cyanosis, or edema. NEURO: No focal or lateralizing signs. Cranial nerves II through XII grossly within normal limits. GENERAL: Well-developed, pleasant female in no acute distress. CHEST: Nonlabored respirations. Equal bilateral excursions. CARDIOVASCULAR: Regular rate and rhythm. HEENT: No sclerae icterus. Extraocular movements are grossly intact. Moist buccal mucosa. NECK: Supple without lymphadenopathy. PSYCH: Appropriate affect. Alert and oriented to person, place and time. ASSESSMENT: 1. Morbid obesity due to excess caloric intake. 2. Body mass index reduced from 57.3 down to 39. 3. Status post Mynor-en-Y gastric bypass. 4. Diabetes type 2, resolved. 5. Gastroesophageal reflux disease, resolved. 6. Hypertensive heart disease with history of cardiomyopathy, chronic. 7. Depression without recent psychosis. 8. Osteoarthritis of the knees secondary to morbid obesity. 9. History of thromboembolic events. 10. Obstructive sleep apnea, improved. 11. Chronic constipation. 12. Secondary hyperparathyroidism. 13. Status post massive weight loss 109 pounds. 14. Right upper quadrant abdominal pain. 15. Possible peritoneal adhesions. 16. Personal history of small bowel obstruction. PLAN: 1. Recommend a bariatric metabolic panel. 2. Given the severity of her pain and history of Mynor-en-Y gastric bypass including previous history of peritoneal adhesions, I do recommend inpatient hospitalization for further evaluation and management. 3. She will likely benefit from a diagnostic laparoscopy with lysis of adhesions. 4. Recommend IV fluid hydration. 5. Will need additional testing such as CT of the abdomen and pelvis for further evaluation and management as well. 6. Deep venous thrombosis prophylaxis. 7. Antibiotic prophylaxis.
== END | disposition home or self-care (01) ==
LOC: BARWHC3 13:28
PROVIDERS: ATTEND Surgery Plastic and Reconstructive Surgery
DX: R10.11 Right upper quadrant pain (principal); Z98.84 Bariatric surgery status; E66.01 Morbid (severe) obesity due to excess calories; Z68.39 Body mass index [BMI] 39.0-39.9, adult
CPT/HCPCS: 99211

== ENCOUNTER 2016-10-12 11:26 | Day surgery (SDC) | payer MEDICARE, OTHER ==
[2016-10-10 09:35] VITALS: BMI 38.9
--- NOTE | 2016-10-12 07:55 | P.GSHP ---
History of Present Illness H&P Date: 10/12/16 CHIEF COMPLAINT: History of intra-abdominal adhesions HISTORY OF PRESENT ILLNESS: The patient is a 51-year-old female who presents with history of intra-abdominal adhesions from multiple prior surgeries including increasing abdominal pain. She now presents for diagnostic laparoscopy including lysis of adhesions. PAST MEDICAL HISTORY: Please see list. PAST SURGICAL HISTORY: Please see list. MEDICATIONS: Please see list. ALLERGIES: Please see list. SOCIAL HISTORY: No illicit drug use FAMILY HISTORY: No reports of Crohn disease or ulcerative colitis. REVIEW OF ORGAN SYSTEMS: CONSTITUTIONAL: No reports of fevers or chills. GI: Denies any blood in stools or constipation. PHYSICAL EXAM: VITAL SIGNS: Stable GENERAL: Well-developed pleasant and in no acute distress. HEENT: No scleral icterus. Extraocular movements grossly intact. Moist buccal mucosa. NECK: Supple without lymphadenopathy. CHEST: Unlabored respirations. Equal bilateral excursions. CARDIOVASCULAR: Regular rate and rhythm. Distal 2+ pulses. ABDOMEN: Soft, diffuse abdominal tenderness. No peritonitis. MUSCULOSKELETAL: No clubbing, cyanosis, or edema. ASSESSMENT: 1. Diffuse abdominal pain. 2. History of multiple abdominal surgeries. 3. Intra-abdominal adhesions. PLAN: 1. Diagnostic laparoscopy with lysis of adhesions were described in detail including risk of injury to the intestine, need for further surgery, and open technique. 2. DVT prophylaxis. 3. Antibiotic prophylaxis. Past Medical History Past Medical History: Diabetes Mellitus, Deep Vein Thrombosis (DVT), Pulmonary Embolus (PE), Skin Disorder, Sleep Apnea/CPAP/BIPAP Additional Past Medical History / Comment(s): ESTHER ANKLE/foot swelling, heart murmur, kidney stones, wears O2 at night at 2L. VARICOSE VEIN POSS. COLD SORE ON UPPER LIP. RECOVERING FROM BED BUGS, CLEARED BY DR LAST WEEK WHEN HERE. History of Any Multi-Drug Resistant Organisms: None Reported Past Surgical History: Bariatric Surgery, Hysterectomy, Tonsillectomy Additional Past Surgical History / Comment(s): cataract removal both eyes, benign growths removed from head, fatty tumor removed from left shoulder, lithotripsy x5, Mynor-en Y-Gastric bypass 05-24-2015 Past Anesthesia/Blood Transfusion Reactions: Family History of Problems w/ Anesthesia, Motion Sickness Additional Past Anesthesia/Blood Transfusion Reaction / Comment(s): BROTHER HAS PROBLEMS, SLOW AWAKENING FROM ANESTHESIA. Past Psychological History: Anxiety, Depression Smoking Status: Former smoker Past Alcohol Use History: None Reported Additional Past Alcohol Use History / Comment(s): SMOKED SOCIALLY [id number] EST. Past Drug Use History: None Reported - Past Family History Father History Unknown: Yes Family Medical History: No Reported History Mother Family Medical History: Congestive Heart Failure (CHF), Diabetes Mellitus, Hypertension Additional Family Medical History / Comment(s): mental disorder, alcoholism, Medications and Allergies Home Medications Medication Instructions Recorded Confirmed Type Aspirin 81 mg PO DAILY 12/08/14 10/10/16 History Multivitamins, Thera [Multivitamin] 1 tab PO DAILY 07/06/15 10/10/16 History PARoxetine HCL [Paxil] 20 mg PO HS 07/18/16 10/10/16 History Calcium Citrate 500 mg PO TID 10/03/16 10/10/16 History Polyethylene Glycol 3350 [Miralax] 17 gm PO Q2D 10/10/16 10/10/16 History Allergies Allergy/AdvReac Type Severity Reaction Status Date / Time metoclopramide HCl AdvReac SEVERE Verified 10/10/16 09:28 [From Reglan] ANXIETY prochlorperazine edisylate AdvReac anxiety Verified 10/10/16 09:28 [From Compazine] severe prochlorperazine maleate AdvReac anxiety Verified 10/10/16 09:28 [From Compazine] severe ziprasidone HCl [From Geodon] AdvReac anxiety Verified 10/10/16 09:28 severe ziprasidone mesylate AdvReac anxiety Verified 10/10/16 09:28 [From Geodon] severe bleach AdvReac Dyspnea Uncoded 10/10/16 09:28 tomatoes AdvReac Itching Uncoded 10/10/16 09:28
[~2016-10-12 11:26] MED LIST: ACETAMINOPHEN IV (For NPO) 1,000 MG in EMPTY BAG 1 BAG IVPB ONE; DEXAMETHASONE SOD PHOSPHATE 10 MG/ML 1 ML VIAL IV ONE; HYDROmorphone 1 MG/ML 1 ML SYRINGE IVP PRN; LACTATED RINGERS 1,000 ML IV SCH; MIDAZOLAM 2 MG/2 ML VIAL IV PRN; SCOPOLAMINE 1.5MG/72HR PATCH TRANSDERM ONE; ceFAZolin 2 GM in SODIUM CHLORIDE 0.9% 100 ML IVPB ONE
[2016-10-12] MEDS: ONDANSETRON 4 MG/2 ML VIAL IVP ONE ×2 (12:47→16:49)
[2016-10-12] MEDS: ENOXAPARIN 40 MG/0.4 ML SYRINGE SQ ONE ×2 (12:47→13:16)
[2016-10-12 13:16] LABS: Glucose,Whole Blood 86 mg/dL (75-99)
[2016-10-12] MEDS ORDERED: GLYCOPYRROLATE 0.2 MG/ML 2 ML VIAL ONE (14:09)
[2016-10-12] MEDS ORDERED: SUCCINYLCHOLINE CHLORIDE 100 MG/5 ML SYR IV ONE (14:09)
[2016-10-12] MEDS ORDERED: LIDOCAINE 1% INJ 10MG/ML (20 ML MDV) ONE (14:09)
[2016-10-12] MEDS ORDERED: PROPOFOL 10 MG/ML 20 ML VIAL IV ONE (14:09)
[2016-10-12] MEDS ORDERED: NEOSTIGMINE 1 MG/ML 10 ML VIAL ONE (14:09)
[2016-10-12] MEDS ORDERED: ROCURONIUM BROMIDE 10 MG/ML 10 ML VIAL IV ONE (14:09)
[2016-10-12] MEDS ORDERED: MIDAZOLAM 2 MG/2 ML VIAL ONE (14:09)
[2016-10-12] MEDS ORDERED: fentaNYL (PF) 50 MCG/ML 2 ML AMP ONE (14:09)
[2016-10-12] MEDS ORDERED: BUPIVACAIN-EPI 0.25%-1:200,000 30 ML VIAL SQ ONE (14:51)
[2016-10-12] MEDS ORDERED: LACTATED RINGERS 1,000 ML IV ONE (14:52)
--- NOTE | 2016-10-12 16:03 | P.PCN ---
Date of Procedure: 10/12/16 Preoperative Diagnosis: Abdominal pain, history of bariatric surgery, Mynor-en-Y gastric bypass, morbid obesity due to excess calories, BMI 38 Postoperative Diagnosis: Same, incarcerated incisional ventral hernia lower abdomen 15 x 4 cm from previous hysterectomy scar involving sigmoid colon, small bowel volvulus involving jejunum completely reduced, peritoneal adhesions left upper quadrant and right upper quadrant Procedure(s) Performed: Laparoscopic lysis of adhesions over 45 minutes, reduction of small bowel volvulus, reduction of incarcerated incisional ventral hernia lower abdomen from previous hysterectomy Implants: Anesthesia: GETA, local Surgeon: Blanka Cota Estimated Blood Loss (ml): 5 Pathology: none sent Condition: stable Disposition: floor Indications for Procedure: Operative Findings: Description of Procedure:
[2016-10-12 16:17] VITALS: TEMP 97.4
[2016-10-12 16:35] LABS: Glucose,Whole Blood 154 mg/dL (75-99)
[2016-10-12 17:48] VITALS: RESP 18
[2016-10-12 18:02] VITALS: BP 111/61; PULSE 68
--- NOTE | 2016-10-13 08:07 | OP ---
DATE OF SERVICE: 10/12/2016 SURGEON: JAIDA LAWLER MD PREOPERATIVE DIAGNOSES: 1. Chronic abdominal pain. 2. History of Mynor-en-Y gastric bypass. 3. Chronic constipation. 4. Previous history of abdominal surgeries including hysterectomy. 5. Diabetes type 2, resolved. 6. Sleep apnea, resolved. 7. Personal history of deep venous thrombosis and pulmonary embolism. POSTOPERATIVE DIAGNOSES: 1. Chronic abdominal pain. 2. History of Mynor-en-Y gastric bypass. 3. Chronic constipation. 4. Previous history of abdominal surgeries including hysterectomy. 5. Diabetes type 2, resolved. 6. Sleep apnea, resolved. 7. Personal history of deep venous thrombosis and pulmonary embolism. 8. Incarcerated incisional ventral hernia of the lower pelvis from a previous hysterectomy. 9. Small bowel volvulus involving the jejunum. 10. Peritoneal adhesions, bilateral upper quadrant. OPERATION: 1. Diagnostic laparoscopy. 2. Laparoscopic lysis of adhesions over 45 minutes. 3. Laparoscopic reduction of small bowel volvulus involving the jejunum. 4. Laparoscopic reduction of incarcerated incisional ventral hernia of the lower abdomen from previous Pfannenstiel incision. ANESTHESIA: General with 30 mL 0.25% Marcaine with epinephrine. ESTIMATED BLOOD LOSS: 5 mL. SPECIMENS REMOVED: None. COMPLICATIONS: None. OPERATIVE FINDINGS: 1. The sigmoid colon was adhered along to the lower pelvis which is consistent with a lower midline fascial failure from her previous hysterectomy. 2. No evidence of bowel ischemia or necrosis is identified for incarcerated incisional ventral hernia. 3. Peritoneal adhesions of the bilateral upper quadrant from her previous trocar site. 4. Small bowel volvulus was identified of the left upper quadrant involving the jejunum. 5. No evidence of Wu defect or jejunojejunostomy mesenteric defect. INDICATIONS: Yessy Buchanan is a 51-year-old female who reports increasing chronic abdominal pain. Her history is significant for previous gastric bypass as well as hysterectomy. As her pain has gotten worse including history of bowel obstruction, she was recently admitted; however, her pain had improved. Now she presents for diagnostic laparoscopy with laparoscopic lysis adhesions. Per request of the patient, she wanted to avoid the possibility of open surgery. Benefits and risks were described and informed consent was obtained. DESCRIPTION OF PROCEDURE: Patient was brought to the operating room, laid in supine position. After general induction, the abdomen had been prepped and draped in standard sterile fashion. Prior to incision, a timeout protocol was confirmed with surgical team regarding the patient's name including procedures to be performed. Preoperative medications were also administered. Along the right upper quadrant, the skin was localized with anesthetic. A #11 blade was used to make a transverse 5 mm incision. A 0 degree laparoscopic trocar entry was performed and entered into the abdominal cavity. Diagnostic laparoscopy demonstrated adhesions from her previous trocar sites of the left upper quadrant, including the right upper quadrant. Of the lower midline, the sigmoid colon was densely adherent to the abdominal wall. Evidence of small bowel dilatation was also identified. Next, two 5 mm trocars were placed along the left lateral abdominal wall also under direct visualization. The patient was placed in Trendelenburg position with the left side up. Initial attention was brought to the lower midline whereby carefully the large bowel was dissected free from her hernia. Upon closer inspection, the actual muscle was poorly approximated from her previous hysterectomy as a result causing an incarcerated incisional hernia. No evidence of bowel ischemia or bowel necrosis was identified. Extensive lysis of adhesions over 40+ minutes was used to completely mobilize and free the colon. Final defect corresponded to approximately 15 x 3 cm of the lower midline. Next, attention was brought to evaluation of the rest of the small bowel whereby the appendix was still identified and unremarkable in appearance. The terminal ileum was identified in a retrograde fashion, the small bowel was investigated proximally to the jejunojejunostomy. At the mid to distal jejunum, the mesenteric was found in torsion and the small bowel was in volvulus which was reduced during her diagnostic laparoscopy. The jejunojejunostomy mesenteric defect was closed from her initial operation. Next, the patient was placed in reverse Trendelenburg whereby the gastric pouch and the Mynor limb were investigated. The Mynor limb was measured to the jejunojejunostomy confirming no Wu defect. The adhesions of the left upper quadrant were identified from previous trocar site, which were sharply lysed using Sonicision. Of the right upper quadrant, there appeared to be a port site hernia also consistent with adhesion which was divided using the Sonicision. Hemostasis was excellent throughout the rest of the abdomen. All instruments and pneumoperitoneum were evacuated from the abdominal cavity. The incision was localized with 0.25% Marcaine with epinephrine. Incisions were reapproximated using 4-0 Monocryl interrupted subcuticular fashion. The patient was transferred to the postanesthesia care unit in stable condition upon extubation. Laparoscopic imaging was reviewed with the patient's family who were very pleased with the level of care. ADDENDUM: As the patient had sought to avoid any open procedure, I have recommended to the family for a formal abdominal wall hernia repair, which will require abdominal wall reconstruction. BREA
== END 2016-10-12 18:28 | disposition home or self-care (01) ==
LOC: OR 11:26
PROVIDERS: ATTEND Surgery Plastic and Reconstructive Surgery
DX: K66.0 Peritoneal adhesions (postprocedural) (postinfection) (principal); K43.2 Incisional hernia without obstruction or gangrene; K56.2 Volvulus; Z98.84 Bariatric surgery status; G47.33 Obstructive sleep apnea (adult) (pediatric); Z99.81 Dependence on supplemental oxygen; Z87.891 Personal history of nicotine dependence; Z86.718 Personal history of other venous thrombosis and embolism; Z86.711 Personal history of pulmonary embolism; F41.9 Anxiety disorder, unspecified; F32.9 Major depressive disorder, single episode, unspecified; Z79.82 Long term (current) use of aspirin; Z79.899 Other long term (current) drug therapy; Z88.8 Allergy status to other drugs, medicaments and biological substances
CPT/HCPCS: 49329; 49654; 44050; J2250; J1100; J2710; J0690; J2405; J2001; J1650; J3010; J0131; J0330; J2704

== ENCOUNTER → 2016-10-19 | Outpatient (CLI) | payer MEDICARE, OTHER ==
[2016-10-19 13:00] VITALS: BP 133/74; PULSE 62; TEMP 98.7; BMI 38.2
[2016-10-19 15:43] LABS: ALT 30 U/L (9-52); AST 23 U/L (14-36); Alkaline Phosphatase 96 U/L (38-126); Anion Gap 9 mmol/L; Blood Urea Nitrogen 15 mg/dL (7-17); Calcium 9.3 mg/dL (8.4-10.2); Carbon Dioxide 28 mmol/L (22-30); Chloride 102 mmol/L (98-107); Glucose 136 mg/dL (74-99); Magnesium 1.7 mg/dL (1.6-2.3); Non-African American GFR(MDRD) >60 (>60 ml/min/1.73 sqM); Potassium 4.3 mmol/L (3.5-5.1); Sodium 139 mmol/L (137-145); Total Bilirubin 0.8 mg/dL (0.2-1.3); Total Protein 7.3 g/dL (6.3-8.2)
--- NOTE | 2016-11-23 12:14 | P.PN ---
Progress Note - Text DATE OF SERVICE: 10/19/2016 CHIEF COMPLAINT: Followup diagnostic laparoscopy. HISTORY OF PRESENT ILLNESS: Yessy Buchanan is a 51-year-old female who is status post laparoscopic lysis of adhesions on 10/12/2016. She is now one week out. Findings included a large incisional hernia of the lower abdomen at her previous hysterectomy site was found. She also had features of small bowel volvulus. Now she presents for further evaluation and management. She still reports chronic abdominal pain, particularly of the right upper side. No additional adhesions or scar tissue was found of the abdomen. At her height of 5 feet 4-3/4 inches, her ideal body weight is 144 pounds. Highest weight was 341 pounds. Today she comes in weighing 220 pounds. She has maintained a 113- pound weight loss. Since her last evaluation a little less than 1 or 2 weeks ago , she has lost another 4 pounds. Percent excess weight loss is 58%. Body mass index has been reduced from 57.3 to 38.2. She is 84 pounds overweight. She also reports intermittent nausea. She reports having vomiting at least 3 times following her surgery as well. PHYSICAL EXAM: VITAL SIGNS: 98.7, 62, 12, 133/74. Frame of 5 feet 4-3/4 inches. Weight of 220 pounds. Body mass index 38.2. ABDOMEN: Soft. Mild tenderness along the right upper quadrant. All incisions are clean, dry and intact with Dermabond. No signs of infection or cellulitis. MUSCULOSKELETAL: No clubbing, cyanosis, or edema. NEURO: No focal or lateralizing signs. Cranial nerves II through XII grossly within normal limits. GENERAL: Well-developed, pleasant female in no acute distress. CHEST: Nonlabored respirations. Equal bilateral excursions. CARDIOVASCULAR: Regular rate and rhythm. HEENT: No sclerae icterus. Extraocular movements are grossly intact. Moist buccal mucosa. NECK: Supple without lymphadenopathy. PSYCH: Appropriate affect. Alert and oriented to person, place and time. ASSESSMENT: 1. Morbid obesity due to excess calories. 2. Body mass index reduced from 57.3 to 38.2. 3. History of small bowel volvulus. 4. History of intraabdominal adhesions. 5. History of incarcerated incisional hernia. 6. Chronic panniculitis. 7. Nausea. PLAN: 1. She likely has ileus following her procedure. Additional prescription for magnesium is advised. Her laboratory work demonstrates thiamine was within normal limits. 2. She has chronic panniculitis as well. As she has maintained a weight loss of over 100 pounds, she would best benefit from panniculectomy. 3. As she also has an incisional hernia, I also would recommend incisional hernia repair at the time of her procedure. 4. Anticipated postoperative recovery of at least 4 to 6 weeks following panniculectomy. This was reviewed with her. 5. Inpatient hospitalization is advised and anticipated for 2 nights. 6. DVT prophylaxis. 7. Antibiotic prophylaxis. 8. Weight lifting restriction of 4 pounds was described. 9. Risks of panniculectomy, including bleeding, infection, chronic pain, postoperative seromas were also reviewed. 10. Placement of AJIT drains was also reviewed. 11. She also will need to wear an abdominal binder at all times, with the exception of showering. 12. I have recommended close observation, especially with her history of incarcerated ventral hernia. 13. Given the urgency of her incisional hernia with symptoms, I do recommend proceeding with surgical intervention as described. cc: [facility] Dr.Mark Hinton
== END | disposition home or self-care (01) ==
LOC: BARWHC3 11:03
PROVIDERS: ATTEND Surgery Plastic and Reconstructive Surgery
DX: Z48.815 Encounter for surgical aftercare following surgery on the digestive system (principal); E66.01 Morbid (severe) obesity due to excess calories; Z68.38 Body mass index [BMI] 38.0-38.9, adult
CPT/HCPCS: 84425; 80053; 83735; G0463; 99211

== ENCOUNTER → 2016-10-31 | Outpatient (CLI) | payer MEDICARE, OTHER ==
[2016-10-31 13:25] VITALS: BP 134/63; PULSE 51; RESP 16; TEMP 97.9; BMI 38.2
== END | disposition home or self-care (01) ==
LOC: BARWHC3 12:13
PROVIDERS: ATTEND Surgery Plastic and Reconstructive Surgery
DX: D50.9 Iron deficiency anemia, unspecified (principal); K90.89 Other intestinal malabsorption; Z88.9 Allergy status to unspecified drugs, medicaments and biological substances; Z91.018 Allergy to other foods; Z91.048 Other nonmedicinal substance allergy status
CPT/HCPCS: 99211

== ENCOUNTER → 2016-12-26 | Outpatient (CLI) | payer MEDICARE, OTHER ==
[2016-12-26 14:11] VITALS: BP 119/61; PULSE 56; TEMP 98.4; BMI 38.2
--- NOTE | 2017-01-06 15:51 | P.PN ---
Progress Note - Text DATE OF SERVICE: 12/26/2016 CHIEF COMPLAINT: Followup gastric bypass. HISTORY OF PRESENT ILLNESS: Yessy Buchanan is a 51-year-old female who is status post Mynor-en-Y gastric bypass May 24, 2015. She is 1-1/2 years out. She has done extremely well with her weight loss including complete resolution of her diabetes. Her obstructive sleep apnea has improved. She also has developed right upper quadrant abdominal pain which is now resolved. She had a past diagnostic aparoscopy demonstrating recurrent lower abdominal wall hernia. Since her surgery, she has lost over 100+ pounds. She has been using Nystatin powder for over 2 years. At her height of 5 feet 4-3/4 inch frame, she comes in today weighing 228 pounds. Her highest weight was 341 pounds. Her ideal body weight is 144 pounds. She has maintained 113 pound weight loss. Body mass index reduced from 57.3 down to 38.3. Percent excess weight loss is 58%. Since her last visit 2 months ago, her weight is unchanged. PAST MEDICAL HISTORY: 1. Diabetes type 2, resolved. 2. Osteoarthritis of the bilateral knees. 3. Osteoarthritis of the lower back. 4. Iron deficiency anemia. 5. Chronic recurrent deep venous thromboses over 4 events. 6. Depression. 7. Vitamin D deficiency. 8. Vitamin B12 deficiency. 9. History of brain disorder with cysts requiring surgery. 10. Gastroesophageal reflux disease, resolved. 11. History obstructive sleep apnea, improved. PAST SURGICAL HISTORY: 1. She reports lithotripsy for kidney stones at least 5 times. 2. Hysterectomy. 3. Tonsillectomy. 4. Bilateral cataract eye extraction. 5. Removal of benign growths along the scalp. 6. History of fatty tumor removal from the left shoulder. 7. Status post Mynor-en-Y gastric bypass. 8. Colonoscopy. 9. Laparoscopic lysis of adhesions. MEDICATIONS: 1. Paxil. 2. Multivitamin. 3. Calcium citrate. 4. Aspirin. 5. Miralax. ALLERGIES: 1. COMPAZINE. 2. GEODON. 3. TOMATOES. SOCIAL HISTORY: Former tobacco user. FAMILY HISTORY: Pertinent for morbid obesity including gallbladder disease. REVIEW OF SYSTEMS: CONSTITUTIONAL: [place] body weight of 144 pounds. Highest weight 341 pounds. Present weight 228 pounds. Present weight loss of 113 pounds. Percent excess weight loss is 58%. Body mass index is reduced from 57.3 down to 38.3. GASTROINTESTINAL: Denies any dumping syndrome. Her abdominal pain is now resolved. ENDOCRINE: Resolved diabetes type 2. No thyroid disorder. RESPIRATORY: Improved obstructive sleep apnea. MUSCULOSKELETAL: Reports diffuse osteoarthritis of the lower back. NEURO: Reports dizziness. She has had previous MRI work-up negative for acute stroke. PSYCH: History of adverse event from Paxil for which she is being changed to different antidepressant. HEMATOLOGIC: History of prior blood clots. HEENT: Denies any troubles with vision or hearing. CARDIOVASCULAR: History of heart arrhythmia. SKIN: Has panniculitis. No reports of cancer. PHYSICAL EXAM: VITAL SIGNS: 5 foot 4-3/4 inch frame, 228 pounds. Body mass index is 38.3. Vital Signs 12/26/16 14:10 Temperature 98.4 F Pulse Rate 56 L Blood Pressure 119/61 ABDOMEN: Soft without peritoneal signs. No peritonitis. Pannus extends over pubis over 5 cm. Mild panniculitis. Weight of pannus over 5-10 pounds. Has palpable incisional hernia. MUSCULOSKELETAL: No clubbing, cyanosis, or edema. NEURO: No focal or lateralizing signs. Cranial nerves II through XII grossly within normal limits. GENERAL: Well-developed, pleasant female in no acute distress. CHEST: Nonlabored respirations. Equal bilateral excursions. CARDIOVASCULAR: Regular rate and rhythm. HEENT: No sclerae icterus. Extraocular movements are grossly intact. Moist buccal mucosa. NECK: Supple without lymphadenopathy. PSYCH: Appropriate affect. Alert and oriented to person, place and time. SKIN: Has panniculitis. No skin cancer. ASSESSMENT: 1. Morbid obesity due to excess caloric intake. 2. Body mass index reduced from 57.3 down to 38.3. 3. Status post Mynor-en-Y gastric bypass. 4. Hypertensive heart disease with history of cardiomyopathy, chronic. 5. Depression without recent psychosis. 6. History of thromboembolic events. 7. Obstructive sleep apnea, improved. 8. Status post massive weight loss 113 pounds. 9. Panniculitis. 10. Recurrent incisional ventral hernia. PLAN: 1. Recommend panniculectomy despite using Nystatin daughter for over 2 years. 2. Benefits and risks of panniculectomy including bleeding, infection, flap failure, abdominal wall seroma, AJIT drain. 3. DVT prophylaxis. 4. Antibiotic prophylaxis. 5. Recommend ventral hernia repair as she is symptomatic. 6. Recommend bariatric metabolic panel.
== END | disposition home or self-care (01) ==
LOC: BARWHC3 13:05
PROVIDERS: ATTEND Surgery Plastic and Reconstructive Surgery
DX: E66.01 Morbid (severe) obesity due to excess calories (principal); D50.9 Iron deficiency anemia, unspecified
CPT/HCPCS: 97803; G0463; 99211

== ENCOUNTER 2017-04-08 07:56 | Inpatient (IN) | payer MEDICARE, OTHER ==
[~2017-04-08 07:56] MED LIST changes: -ACETAMINOPHEN IV (For NPO) 1,000 MG in EMPTY BAG 1 BAG IVPB ONE; +ONDANSETRON 4 MG/2 ML VIAL IVP ONE; -SCOPOLAMINE 1.5MG/72HR PATCH TRANSDERM ONE; -ceFAZolin 2 GM in SODIUM CHLORIDE 0.9% 100 ML IVPB ONE; +ceFAZolin IN SWFI 2 GM/20 ML SYRINGE IVP ONE
[2017-04-08 08:38] LABS: Glucose,Whole Blood 84 mg/dL (75-99)
[2017-04-08] MEDS ORDERED: LIDOCAINE 1% 20 ML VIAL (10MG/ML) FOR IV START INTRADERMA ONE (08:51)
[2017-04-08] MEDS ORDERED: ENOXAPARIN 40 MG/0.4 ML SYRINGE SQ STA (10:06)
--- NOTE | 2017-04-08 10:09 | P.GSHP ---
History of Present Illness H&P Date: 04/08/17 CHIEF COMPLAINT: Panniculitis. HISTORY OF PRESENT ILLNESS: Yessy Buchanan is a 52-year-old female who is status post Mynor-en-Y gastric bypass May 24, 2015. She is 2 years out. She has done extremely well with her weight loss including complete resolution of her diabetes. Her obstructive sleep apnea has improved. She also has developed right upper quadrant abdominal pain which is now resolved. She had a past diagnostic aparoscopy demonstrating recurrent lower abdominal wall hernia. Since her surgery, she has lost over 100+ pounds. She has been using Nystatin powder for over 2 years. At her height of 5 feet 4-3/4 inch frame, she comes in today weighing 222 pounds. Her highest weight was 341 pounds. Her ideal body weight is 144 pounds. She has maintained 119 pound weight loss. Body mass index reduced from 57.3 down to 37.4. She now presents for panniculectomy with ventral hernia repair. PAST MEDICAL HISTORY: 1. Diabetes type 2, resolved. 2. Osteoarthritis of the bilateral knees. 3. Osteoarthritis of the lower back. 4. Iron deficiency anemia. 5. Chronic recurrent deep venous thromboses over 4 events. 6. Depression. 7. Vitamin D deficiency. 8. Vitamin B12 deficiency. 9. History of brain disorder with cysts requiring surgery. 10. Gastroesophageal reflux disease, resolved. 11. History obstructive sleep apnea, improved. PAST SURGICAL HISTORY: 1. She reports lithotripsy for kidney stones at least 5 times. 2. Hysterectomy. 3. Tonsillectomy. 4. Bilateral cataract eye extraction. 5. Removal of benign growths along the scalp. 6. History of fatty tumor removal from the left shoulder. 7. Status post Mynor-en-Y gastric bypass. 8. Colonoscopy. 9. Laparoscopic lysis of adhesions. MEDICATIONS: 1. Paxil. 2. Multivitamin. 3. Calcium citrate. 4. Aspirin. 5. Miralax. ALLERGIES: 1. COMPAZINE. 2. GEODON. 3. TOMATOES. SOCIAL HISTORY: Former tobacco user. FAMILY HISTORY: Pertinent for morbid obesity including gallbladder disease. REVIEW OF SYSTEMS: CONSTITUTIONAL: Bailey body weight of 144 pounds. Highest weight 341 pounds. Present weight 222 pounds. Present weight loss of 113 pounds. Percent excess weight loss is 58%. Body mass index is reduced from 57.3 down to 38.3. GASTROINTESTINAL: Denies any dumping syndrome. Her abdominal pain is now resolved. ENDOCRINE: Resolved diabetes type 2. No thyroid disorder. RESPIRATORY: Improved obstructive sleep apnea. MUSCULOSKELETAL: Reports diffuse osteoarthritis of the lower back. NEURO: Reports dizziness. She has had previous MRI work-up negative for acute stroke. PSYCH: History of adverse event from Paxil for which she is being changed to different antidepressant. HEMATOLOGIC: History of prior blood clots. HEENT: Denies any troubles with vision or hearing. CARDIOVASCULAR: History of heart arrhythmia. SKIN: Has panniculitis. No reports of cancer. PHYSICAL EXAM: VITAL SIGNS: 5 foot 4-3/4 inch frame, 222 pounds. Body mass index is 37.4. ABDOMEN: Soft without peritoneal signs. No peritonitis. Pannus extends over pubis over 5 cm. Mild panniculitis. Weight of pannus over 5-10 pounds. Has palpable incisional hernia. MUSCULOSKELETAL: No clubbing, cyanosis, or edema. NEURO: No focal or lateralizing signs. Cranial nerves II through XII grossly within normal limits. GENERAL: Well-developed, pleasant female in no acute distress. CHEST: Nonlabored respirations. Equal bilateral excursions. CARDIOVASCULAR: Regular rate and rhythm. HEENT: No sclerae icterus. Extraocular movements are grossly intact. Moist buccal mucosa. NECK: Supple without lymphadenopathy. PSYCH: Appropriate affect. Alert and oriented to person, place and time. SKIN: Has panniculitis. No skin cancer. ASSESSMENT: 1. Morbid obesity due to excess caloric intake. 2. Body mass index reduced from 57.3 down to 37.4. 3. Status post Mynor-en-Y gastric bypass. 4. Hypertensive heart disease with history of cardiomyopathy, chronic. 5. Depression without recent psychosis. 6. History of thromboembolic events. 7. Obstructive sleep apnea, improved. 8. Status post massive weight loss 119 pounds. 9. Panniculitis. 10. Recurrent incisional ventral hernia. PLAN: 1. Recommend panniculectomy despite using Nystatin daughter for over 2 years. 2. Benefits and risks of panniculectomy including bleeding, infection, flap failure, abdominal wall seroma, AJIT drain. 3. DVT prophylaxis. 4. Antibiotic prophylaxis. 5. Recommend ventral hernia repair as she is symptomatic. 6. Inpatient hospitalization over 2 nights. Past Medical History Past Medical History: Diabetes Mellitus, Deep Vein Thrombosis (DVT), Pulmonary Embolus (PE), Sleep Apnea/CPAP/BIPAP Additional Past Medical History / Comment(s): ESTHER ANKLE/foot swelling, heart murmur, kidney stones, no longer wears O2 at night, DOES NOT USE CPAP History of Any Multi-Drug Resistant Organisms: None Reported Past Surgical History: Bariatric Surgery, Hysterectomy, Tonsillectomy Additional Past Surgical History / Comment(s): cataract removal both eyes, benign growths removed from head, fatty tumor removed from left shoulder, lithotripsy x5, Mynor-en Y-Gastric bypass 05-24-2015 Past Anesthesia/Blood Transfusion Reactions: Motion Sickness, Postoperative Nausea & Vomiting (PONV) Additional Past Anesthesia/Blood Transfusion Reaction / Comment(s): BROTHER HAS PROBLEMS, SLOW AWAKENING FROM ANESTHESIA. Past Psychological History: Anxiety, Depression Smoking Status: Former smoker Past Alcohol Use History: None Reported Additional Past Alcohol Use History / Comment(s): SMOKED SOCIALLY [id number] EST less than 1/2ppd Past Drug Use History: None Reported - Past Family History Father History Unknown: Yes Family Medical History: No Reported History Mother Family Medical History: Congestive Heart Failure (CHF), Diabetes Mellitus, Hypertension Additional Family Medical History / Comment(s): mental disorder, alcoholism, Medications and Allergies Home Medications Medication Instructions Recorded Confirmed Type Aspirin 81 mg PO DAILY 12/08/14 04/04/17 History Multivitamins, Thera [Multivitamin] 1 tab PO DAILY 07/06/15 04/04/17 History PARoxetine HCL [Paxil] 20 mg PO HS 07/18/16 04/04/17 History Calcium Citrate 500 mg PO TID 10/03/16 04/04/17 History Polyethylene Glycol 3350 [Miralax] 17 gm PO Q2D 10/10/16 04/04/17 History Nystatin [Nystop] 60 gm TP BID #60 powder 10/31/16 04/04/17 Rx Cholecalciferol [Vitamin D3] 1 tab PO DAILY 12/26/16 04/04/17 History Allergies Allergy/AdvReac Type Severity Reaction Status Date / Time metoclopramide HCl AdvReac SEVERE Verified 04/04/17 10:51 [From Reglan] ANXIETY prochlorperazine edisylate AdvReac anxiety Verified 04/04/17 10:51 [From Compazine] severe prochlorperazine maleate AdvReac anxiety Verified 04/04/17 10:51 [From Compazine] severe ziprasidone HCl [From Geodon] AdvReac anxiety Verified 04/04/17 10:51 severe ziprasidone mesylate AdvReac anxiety Verified 04/04/17 10:51 [From Geodon] severe bleach AdvReac Dyspnea Uncoded 04/04/17 10:51 tomatoes AdvReac Itching Uncoded 04/04/17 10:51 Surgical - Exam Vital Signs Temp Pulse Resp BP Pulse Ox 97.9 F 55 L 18 130/75 99 04/08/17 08:19 04/08/17 08:19 04/08/17 08:19 04/08/17 08:19 04/08/17 08:19
[2017-04-08] MEDS ORDERED: LIDOCAINE 1% INJ 10MG/ML (20 ML MDV) ONE (11:28)
[2017-04-08] MEDS ORDERED: ePHEDrine SULFATE/0.9% NACL/PF 50 MG/5 ML SYRINGE IV ONE (11:28)
[2017-04-08] MEDS ORDERED: fentaNYL (PF) 50 MCG/ML 2 ML AMP ONE (11:28)
[2017-04-08] MEDS ORDERED: HYDROmorphone (PF) 1 MG/ML ONE (11:28)
[2017-04-08] MEDS ORDERED: PROPOFOL 10 MG/ML 20 ML VIAL IV ONE (11:28)
[2017-04-08] MEDS ORDERED: MIDAZOLAM 2 MG/2 ML VIAL ONE (11:28)
[2017-04-08] MEDS ORDERED: SUCCINYLCHOLINE CHLORIDE 100 MG/5 ML SYR IV ONE (11:28)
[2017-04-08] MEDS ORDERED: LACTATED RINGERS 1,000 ML IV ONE ×2 (12:21→14:33)
[2017-04-08] MEDS ORDERED: NALOXONE 0.4 MG/ML 1 ML VIAL IV PRN (15:45)
[2017-04-08] MEDS ORDERED: ACETAMINOPHEN IV (For NPO) 1,000 MG in EMPTY BAG 1 BAG IVPB ONE (15:45)
--- NOTE | 2017-04-08 15:45 | P.OP ---
Date of Procedure: 04/08/17 Description of Procedure: SURGEON: JAIDA LAWLER MD PRODUCTION ENGINE REPAIRER: 1. DANAY FREEMAN. 2. WILLIE COLLINS. PREOPERATIVE DIAGNOSES: 1. Morbid obesity due to excess caloric intake. 2. Body mass index reduced from 57.3 down to 37.4. 3. Status post Mynor-en-Y gastric bypass. 4. Hypertensive heart disease with history of cardiomyopathy, chronic. 5. Depression without recent psychosis. 6. History of thromboembolic events. 7. Obstructive sleep apnea, improved. 8. Status post massive weight loss 119 pounds. 9. Panniculitis. 10. Recurrent incisional ventral hernia. POSTOPERATIVE DIAGNOSES: 1. Morbid obesity due to excess caloric intake. 2. Body mass index reduced from 57.3 down to 37.4. 3. Status post Mynor-en-Y gastric bypass. 4. Hypertensive heart disease with history of cardiomyopathy, chronic. 5. Depression without recent psychosis. 6. History of thromboembolic events. 7. Obstructive sleep apnea, improved. 8. Status post massive weight loss 119 pounds. 9. Panniculitis. 10. Recurrent incisional ventral hernia, 11 x 28 cm. OPERATION: 1. Panniculectomy, 9.8 pounds. 2. Primary open repair of recurrent incarcerated ventral hernia 11 x 28 cm without mesh. ANESTHESIA: General. ESTIMATED BLOOD LOSS: 500 mL SPECIMENS REMOVED: Pannus 9.8 pounds. COMPLICATIONS: None. CONDITION: Stable. DRAINS: Two #19 Pedro Luis drains below abdominal flap extending through the pubis. OPERATIVE FINDINGS: 1. Pannus weighing 4.4 pounds, excised. 2. Abdominal recurrent incarcerated ventral hernia of 11 x 28 cm along the midline repaired primarily using fascial imbrication. INDICATIONS: Yessy Buchanan is a 52-year-old female who is status post Mynor-en-Y gastric bypass May 24, 2015. She is 2 years out. She has done extremely well with her weight loss including complete resolution of her diabetes. Her obstructive sleep apnea has improved. She also has developed right upper quadrant abdominal pain which is now resolved. She had a past diagnostic aparoscopy demonstrating recurrent lower abdominal wall hernia. Since her surgery, she has lost over 100+ pounds. She has been using Nystatin powder for over 2 years. At her height of 5 feet 4-3/4 inch frame, she comes in today weighing 222 pounds. Her highest weight was 341 pounds. Her ideal body weight is 144 pounds. She has maintained 119 pound weight loss. Body mass index reduced from 57.3 down to 37.4. She now presents for panniculectomy with ventral hernia repair. Benefits and risks of the procedure including bleeding, infection, cosmetic deformity, abdominal seromas, placement of drains, risk of flap failure were described at length. Informed consent was obtained. DESCRIPTION: In the preanesthesia care unit the patient was marked with an indelible marker. She had also been given heparin subcutaneously. The patient was brought into the operating room and laid in supine position. After general induction, a Figueroa catheter was placed. The abdomen was then prepped and draped in standard sterile fashion using ChloraPrep. The skin was prepped as far laterally to the back, inferiorly to the upper thighs and superiorly to above the bilateral breasts. A timeout protocol was confirmed with the surgical team regarding patient's name , procedure to be performed, including preoperative medications. She had received antibiotics. Once the time-out protocol was confirmed with the surgical team, the patient was re-marked with indelible marker whereby the midline of the xiphoid to the mons pubis was marked. The anterior/superior iliac spine along the bilateral hips was also marked. At 7 cm above the pubis commissure a transverse incision was made for the inferior portion of the flap. Using a #10 blade, the incision was taken from the midline laterally to above the anterior/superior iliac spine, initially on the left side of the patient and then on the right side of the patient. Electro-Bovie cautery was used to control for hemostasis. The dissection was taken down to the level of the fascia. Landmarks used were the xiphoid process as well as the bilateral costal margins for the superior margin. Care was taken to avoid any creation of dog ears during the dissection. Once hemostasis was checked, a large recurrent ventral hernia fascial defect with incarceration of 11 x 28 cm was identified unrelated to her bariatric procedure. During this dissection, the umbilicus was truncated at its fascial insertion. Starting from the xiphoid process, fascial imbrication was performed using #2 Ethibond. Multiple facial imbrications at least 2 layers were performed. The ventral hernia defect was completely repaired and closed. Hemostasis was once again checked with electro-Bovie cautery and all defects were addressed. Attention was now brought to closure of the flap. Using stainless steel skin alex, the midline was once again marked of the upper flap as well as the pubic commissure. The patient was placed in a flexed position of approximately 30 degrees at the hips. The pannus was extended inferiorly to the feet. The upper flap was created once the excess skin was excised. Again care was taken to avoid any dog ears along the lateral aspect of the incisions. Once excised, the pannus was weighed at 9.8 pounds. The upper and lower flaps were reapproximated at the midline and then laterally to the skin with skin alex. Once reapproximated, the skin was closed in layers using 0 Vicryl for the superficial fascial system followed by running 3- 0 Monocryl for the deep dermis in a running subcuticular fashion. Prior to skin closure, two round #19 Pedro Luis drains were placed underneath the flap and brought out just inferior to the incision along the pubis. Drain stitch using 2-0 nylon was placed. Once the incision was closed, bulb suction was attached. Hemostasis was checked. At the end of the procedure, the needle, sponge and instrument count was verified correct. The skin was cleansed with hydrogen peroxide. Dermabond tape including adhesive was placed along the length of the incision. Optifoam long silver dressing was also placed over the incision. Small optifoam dressing was placed over the AJIT sites. The patient was then transferred to a hospital bed in a beach chair position. An abdominal binder was placed and marked. The patient was taken to the postanesthesia care unit in stable condition, awake and extubated. Total time for procedure from skin to skin was 201 minutes.
[2017-04-08 17:23] VITALS: BMI 38.2
[2017-04-08] MEDS: HYDROmorphone 1 MG/ML 1 ML SYRINGE IVP PRN (21:03)
[2017-04-08] MEDS: AMPICILLIN-SULBACTAM 3 GM in SODIUM CHLORIDE 0.9% 100 ML IVPB SCH (21:13)
[2017-04-08] MEDS: FAMOTIDINE 20 MG TAB PO SCH (23:36)
[2017-04-08] MEDS: PARoxetine 20 MG TAB PO SCH (23:36)
[2017-04-09] MEDS: HYDROmorphone 1 MG/ML 1 ML SYRINGE IVP PRN ×2 (00:40→07:27)
[2017-04-09] MEDS: AMPICILLIN-SULBACTAM 3 GM in SODIUM CHLORIDE 0.9% 100 ML IVPB SCH (01:40)
[2017-04-09] MEDS: 0.9% NACL WITH KCL 20 MEQ/L 1,000 ML IV SCH ×5 (01:40→22:03)
[2017-04-09] MEDS: ONDANSETRON 4 MG/2 ML VIAL IVP PRN ×2 (03:59→13:24)
[2017-04-09] MEDS: HYDROcodone/APAP 5-325MG 1 EACH TAB PO PRN ×4 (03:59→22:49)
[2017-04-09 07:24] LABS: Basophils % (A) 0 %; CH 29.1; CHCM 31.6; Eosinophils % (A) 0 %; HCT 34.9 % (34.0-46.0); HDW 2.15; HGB 10.8 gm/dL (11.4-16.0); Luc # (Auto) 0.15; Luc % (Auto) 2; Lymphocytes % (A) 10 %; MCH 28.7 pg (25.0-35.0); MCHC 31.1 g/dL (31.0-37.0); MCV 92.4 fL (80.0-100.0); Mean Platelet Volume 8.8; Monocytes # (A) 0.9 k/uL (0-1.0); Monocytes % (A) 9 %; Neutrophils # (A) 7.5 k/uL (1.3-7.7); Neutrophils % (A) 79 %; RBC 3.78 m/uL (3.80-5.40); RDW 13.5 % (11.5-15.5); WBC 9.6 k/uL (3.8-10.6)
[2017-04-09 07:39] LABS: Anion Gap 5 mmol/L; Blood Urea Nitrogen 13 mg/dL (7-17); Calcium 8.9 mg/dL (8.4-10.2); Carbon Dioxide 29 mmol/L (22-30); Chloride 106 mmol/L (98-107); Magnesium 1.5 mg/dL (1.6-2.3); Non-African American GFR(MDRD) >60 (>60 ml/min/1.73 sqM); Phosphorus 3.9 mg/dL (2.5-4.5); Potassium 4.3 mmol/L (3.5-5.1); Sodium 140 mmol/L (137-145)
[2017-04-09] MEDS: ENOXAPARIN 40 MG/0.4 ML SYRINGE SQ SCH (09:25)
[2017-04-09] MEDS: FAMOTIDINE 20 MG TAB PO SCH ×2 (10:51→22:03)
[2017-04-09] MEDS: ASPIRIN 81 MG PO SCH (10:51)
--- NOTE | 2017-04-09 11:43 | P.PN ---
<Gracie Deutsch Saravanan - Last Filed: 04/09/17 11:32> Subjective Progress Note Date: 04/09/17 52-year-old female Seen and examined at bedside currently sitting up in a chair. Patient just received IV dilaudid sleepy arousable to verbal stimuli patient currently is denying any dizziness lightheadedness chest pain or shortness of breath. Currently has an abdominal binder on. Patient presented on elective basis to undergo panniculectomy with ventral hernia repair. .status post Claudia-en-Y gastric bypass May 24, 2015 with the weight loss 100 + pounds since surgery Objective - Vital Signs Vital signs: Vital Signs Temp 98.2 F 04/09/17 10:15 Pulse 61 04/09/17 10:15 Resp 16 04/09/17 10:15 BP 102/50 04/09/17 10:15 Pulse Ox 96 04/09/17 10:15 Intake & Output 04/08/17 04/09/17 04/09/17 18:59 06:59 18:59 Intake Total 2800 1780 Output Total 1300 235 600 Balance 1500 1545 -600 Weight 101.2 kg 101.2 kg Intake: IV 2800 Intake, IV Titration 1300 Amount 0.9% NaCl with KCl 20 Meq 1200 /l 1,000 ml @ 150 mls/hr IV .Q6H40M OPAL Rx#: [id number] Ampicillin-Sulbactam 3 gm 100 In Sodium Chloride 0.9% 100 ml @ 100 mls/hr IVPB Q6HR OPAL Rx#:[id number] Oral 480 Output: Drainage 85 Bilateral 85 Urine 800 150 600 Uretheral (Figueroa) 600 Estimated Blood Loss 500 Other: Voiding Method Indwelling Catheter # Voids 2 - Exam GENERAL APPEARANCE: 52-year-old female patient is alert, oriented 3, in no acute distress. Sitting up in a chair VITAL SIGNS: Reviewed HEENT: Head is normocephalic and atraumatic. Pupils are equal and reactive. The nares are patent. Oropharynx is clear without lesions. NECK: Supple without lymphadenopathy. Traches midline. HEART: S1, S2. Regular rate and rhythm. No murmur noted denying chest pain no heart palpitations LUNGS: No crackles or wheezes are heard. Currently on room air sats are 96% continues I S achieving 1000 ABDOMEN: Abdominal binder in place nondistended surgical tenderness appropriate No peritoneal signs. No palpable organomegaly or masses. No reports of nausea vomiting a few hypoactive bowel tones noted no stool indwelling Figueroa catheter just been removed EXTREMITIES: Normal skin color and turgor. No cyanosis, rash, ulceration, clubbing or edema. Radial pedal pulses are 2/4 bilaterally. NEUROLOGICAL: No focal deficits. Strength and sensation are grossly intact. - Labs CBC & Chem 7: 04/09/17 06:42 04/09/17 06:42 Labs: Abnormal Lab Results - Last 24 Hours (Table) 04/09/17 04/09/17 Range/Units 06:42 06:42 RBC 3.78 L (3.80-5.40) m/uL Hgb 10.8 L (11.4-16.0) gm/dL Creatinine 0.48 L (0.52-1.04) mg/dL Magnesium 1.5 L (1.6-2.3) mg/dL Assessment and Plan Assessment: Impression Type 2 diabetes resolved Osteoarthritis bilateral knees and lower back Iron deficiency anemia Vitamin D deficiency Vitamin B12 deficiency Morbid obesity due to excessive caloric intake Body mass index reduced from 57 down to 37 Status post caludia-en-y gastric bypass 2014 Panniculitis. Failed outpatient treatment Recurrent incisional ventral hernia Hypo-magnesium Plan Continue postop surgical care do not remove the abdominal binder Increase activity as tolerated Replaced magnesium PT OT eval Encourage use of IS use every 1 hour while awake Pain control DVT and GI prophylaxis Repeat labs in the The above impression and plan of care have been discussed and directed by signing physician. Gracie Deutsch nurse practitioner acting as scribe for signing physician. <Blanka Cota N - Last Filed: 04/10/17 07:49> Objective - Vital Signs Vital signs: Vital Signs Temp 98.4 F 04/10/17 00:21 Pulse 60 04/10/17 00:21 Resp 18 04/10/17 00:21 BP 106/64 04/10/17 00:21 Pulse Ox 94 L 04/10/17 00:21 Intake & Output 04/09/17 04/10/17 04/10/17 18:59 06:59 18:59 Intake Total 900 3060 Output Total 930 65 Balance -30 2995 Weight 101.2 kg Intake: Intake, IV Titration 900 2100 Amount 0.9% NaCl with KCl 20 Meq 800 600 /l 1,000 ml @ 100 mls/hr IV .Q10H OPAL Rx#: [id number] 0.9% NaCl with KCl 20 Meq 1500 /l 1,000 ml @ 150 mls/hr IV .Q6H40M OPAL Rx#: [id number] Magnesium Sulfate-D5w Pmx 100 1 gm In Dextrose/Water 1 100ml.bag @ 100 mls/hr IVPB Q1H OPAL Rx#: [id number] Oral 960 Output: Drainage 180 65 Bilateral 180 65 Urine 750 Uretheral (Figueroa) 600 Other: Voiding Method Toilet Toilet # Voids 1 2 - Labs CBC & Chem 7: 04/09/17 06:42 04/10/17 06:16 Labs: Abnormal Lab Results - Last 24 Hours (Table) 04/10/17 Range/Units 06:16 Glucose 105 H (74-99) mg/dL
[2017-04-09] MEDS: MAGNESIUM SULFATE-D5W PMX 1 GM in DEXTROSE/WATER 1 100ML.BAG IVPB SCH ×3 (13:24→15:50)
[2017-04-09] MEDS: PARoxetine 20 MG TAB PO SCH (22:03)
[2017-04-10 06:49] LABS: ALT 42 U/L (9-52); AST 20 U/L (14-36); Alkaline Phosphatase 89 U/L (38-126); Anion Gap 6 mmol/L; Blood Urea Nitrogen 12 mg/dL (7-17); Calcium 9.3 mg/dL (8.4-10.2); Carbon Dioxide 29 mmol/L (22-30); Chloride 106 mmol/L (98-107); Glucose 105 mg/dL (74-99); Magnesium 1.9 mg/dL (1.6-2.3); Non-African American GFR(MDRD) >60 (>60 ml/min/1.73 sqM); Potassium 4.8 mmol/L (3.5-5.1); Sodium 141 mmol/L (137-145); Total Bilirubin 0.2 mg/dL (0.2-1.3); Total Protein 6.4 g/dL (6.3-8.2)
[2017-04-10] MEDS: ONDANSETRON 4 MG/2 ML VIAL IVP PRN (07:11)
--- NOTE | 2017-04-10 07:49 | P.PN ---
Progress Note - Text Progress Note Date: 04/09/17 Patient seen and evaluated. She is more awake and alert this evening. She is tolerating diet. Pain is controlled with pain meds. Discharge home tomorrow.
[2017-04-10 08:42] VITALS: BP 114/64; PULSE 66; RESP 16; TEMP 97.8
[2017-04-10] MEDS: 0.9% NACL WITH KCL 20 MEQ/L 1,000 ML IV SCH (09:47)
[2017-04-10] MEDS: HYDROcodone/APAP 5-325MG 1 EACH TAB PO PRN (09:54)
[2017-04-10] MEDS: ASPIRIN 81 MG PO SCH (09:54)
[2017-04-10] MEDS: ENOXAPARIN 40 MG/0.4 ML SYRINGE SQ SCH (09:57)
--- NOTE | 2017-04-10 10:28 | P.PN ---
Subjective Progress Note Date: 04/10/17 52-year-old female seen and examined at bedside. Patient has been up ambulating from the bed to the bathroom. No difficulties. Patient states pain medication effective for pain control. no new postop events. Objective - Vital Signs Vital signs: Vital Signs Temp 97.8 F 04/10/17 08:40 Pulse 66 04/10/17 08:43 Resp 16 04/10/17 08:43 BP 114/64 04/10/17 08:40 Pulse Ox 94 L 04/10/17 08:40 Intake & Output 04/09/17 04/10/17 04/10/17 18:59 06:59 18:59 Intake Total 900 3060 Output Total 930 65 Balance -30 2995 Weight 101.2 kg Intake: Intake, IV Titration 900 2100 Amount 0.9% NaCl with KCl 20 Meq 800 600 /l 1,000 ml @ 100 mls/hr IV .Q10H OPAL Rx#: [id number] 0.9% NaCl with KCl 20 Meq 1500 /l 1,000 ml @ 150 mls/hr IV .Q6H40M OPAL Rx#: [id number] Magnesium Sulfate-D5w Pmx 100 1 gm In Dextrose/Water 1 100ml.bag @ 100 mls/hr IVPB Q1H OPAL Rx#: [id number] Oral 960 Output: Drainage 180 65 Bilateral 180 65 Urine 750 Uretheral (Figueroa) 600 Other: Voiding Method Toilet Toilet Toilet # Voids 1 2 1 - Exam Physical exam 52-year-old female sitting up in a chair denies any nausea vomiting has been up ambulating in andrea no difficulty Lungs essentially clear with adequate air movement Heart S1-S2 audible regular Abdomen abdominal binder in place soft not distended no nausea no vomiting Extremities Venodyne's on to the bilateral lower - Labs CBC & Chem 7: 04/09/17 06:42 04/10/17 06:16 Labs: Abnormal Lab Results - Last 24 Hours (Table) 04/10/17 Range/Units 06:16 Glucose 105 H (74-99) mg/dL Assessment and Plan Assessment: Impression Type 2 diabetes resolved Osteoarthritis bilateral knees and lower back Iron deficiency anemia Vitamin D deficiency Vitamin B12 deficiency Morbid obesity due to excessive caloric intake Body mass index reduced from 57 down to 37 Status post claudia-en-y gastric bypass 2015 Panniculitis. Failed outpatient treatment Recurrent incisional ventral hernia Hypo-magnesium Plan Continue postop surgical care do not remove the abdominal binder Increase activity PT OT eval Encourage use of IS use every 1 hour while awake Pain control DVT and GI prophylaxis Discharge home The above impression and plan of care have been discussed and directed by signing physician. Gracie Deutsch nurse practitioner acting as scribe for signing physician.
--- NOTE | 2017-04-10 10:35 | P.DS ---
Providers Date of admission: 04/08/17 15:28 Expected date of discharge: 04/10/17 Attending physician: Blanka Cota Primary care physician: Stated None Hospital Course: 52-year-old female who is status post claudia-en-y gastric bypass April 2015. Patient since surgery has lost over 100 pounds. BMI reduced from 57 down to 37 Patient has history of recurrent incisional ventral hernia with panniculitis. Presented on an elective basis to undergo panniculectomy with ventral hernia repair. Done on April 08 no postop events Impression discharge diagnosis Status post April 08 Panniculectomy, 9.8 pounds. Removed with primary open repair of recurrent incarcerated ventral hernia without mesh Type 2 diabetes resolved Osteoarthritis bilateral knees and lower back Iron deficiency anemia Vitamin D deficiency Vitamin B12 deficiency Morbid obesity due to excessive caloric intake Body mass index reduced from 57 down to 37 Status post claudia-en-y gastric bypass 2014 Panniculitis. Failed outpatient treatment Recurrent incisional ventral hernia Hypo-magnesium corrected The above impression and plan of care have been discussed and directed by signing physician. Gracie Deutsch nurse practitioner acting as scribe for signing physician. Plan - Discharge Summary Discharge Rx Participant: Yes New Discharge Prescriptions: New HYDROcodone/APAP 5-325MG [[place] 5-325] 1 - 2 tab PO Q6HR PRN #60 tab PRN Reason: Pain Discontinued Nystatin [Nystop] 60 gm TP BID #60 powder No Action Aspirin 81 mg PO DAILY Multivitamins, Thera [Multivitamin] 1 tab PO DAILY PARoxetine HCL [Paxil] 20 mg PO HS Calcium Citrate 500 mg PO TID Polyethylene Glycol 3350 [Miralax] 17 gm PO Q2D Cholecalciferol [Vitamin D3] 1,000 unit PO DAILY Discharge Medication List Aspirin 81 mg PO DAILY 12/08/14 [History] Multivitamins, Thera [Multivitamin] 1 tab PO DAILY 07/06/15 [History] PARoxetine HCL [Paxil] 20 mg PO HS 07/18/16 [History] Calcium Citrate 500 mg PO TID 10/03/16 [History] Polyethylene Glycol 3350 [Miralax] 17 gm PO Q2D 10/10/16 [History] Cholecalciferol [Vitamin D3] 1,000 unit PO DAILY 12/26/16 [History] HYDROcodone/APAP 5-325MG [[place] 5-325] 1 - 2 tab PO Q6HR PRN #60 tab 04/10/17 [ Rx] Follow up Appointment(s)/Referral(s): Blanka Cota MD [STAFF PHYSICIAN] - 04/11/17 11:30 am ([facility]) Patient Instructions/Handouts: Seth-Jensen Drain Care (DC), Abdominal Binder (GEN), Panniculectomy (DC) Activity/Diet/Wound Care/Special Instructions: No lifting over 4 pounds in 4 weeks. No showering. No bath tub soaks. May use washcloth to hand bath. Please record AJIT outputs. DO NOT REMOVE BINDER. Discharge Disposition: HOME SELF-CARE
[2017-04-10] MEDS: FAMOTIDINE 20 MG TAB PO SCH (10:44)
== END 2017-04-10 13:57 | disposition home or self-care (01) | DRG 354 ==
LOC: OR 07:56 → 3SUR 15:28 → OR 16:27
PROVIDERS: ADMIT Surgery Plastic and Reconstructive Surgery; ATTEND Surgery Plastic and Reconstructive Surgery
PROC: 0WBF0ZZ Excision of Abdominal Wall, Open Approach (ICD-10-PCS; principal; 2017-04-08 09:45)
PROC: 0WQF0ZZ Repair Abdominal Wall, Open Approach (ICD-10-PCS; principal; 2017-04-08 09:45)
DX: K43.2 Incisional hernia without obstruction or gangrene (principal); I42.9 Cardiomyopathy, unspecified; I11.9 Hypertensive heart disease without heart failure; E53.8 Deficiency of other specified B group vitamins; E11.9 Type 2 diabetes mellitus without complications; D50.9 Iron deficiency anemia, unspecified; E83.42 Hypomagnesemia; E55.9 Vitamin D deficiency, unspecified; E66.01 Morbid (severe) obesity due to excess calories; F32.9 Major depressive disorder, single episode, unspecified; F41.9 Anxiety disorder, unspecified; G47.33 Obstructive sleep apnea (adult) (pediatric); K21.9 Gastro-esophageal reflux disease without esophagitis; M17.0 Bilateral primary osteoarthritis of knee; M79.3 Panniculitis, unspecified; Z79.82 Long term (current) use of aspirin; Z79.899 Other long term (current) drug therapy; Z82.49 Family history of ischemic heart disease and other diseases of the circulatory system; Z83.3 Family history of diabetes mellitus; Z86.711 Personal history of pulmonary embolism; Z87.442 Personal history of urinary calculi; Z87.891 Personal history of nicotine dependence; Z98.84 Bariatric surgery status
CPT/HCPCS: 80051; 80053; 82310; 82565; 83735; 84100; 84520; 85025

== ENCOUNTER → 2017-04-11 | Outpatient (CLI) | payer MEDICARE, OTHER ==
[2017-04-11 11:31] VITALS: BP 109/62; PULSE 76; RESP 15; TEMP 97.5; BMI 37.5
--- NOTE | 2017-06-09 14:52 | P.PN ---
Subjective Progress Note Date: 04/11/17 DATE OF SERVICE: 04/11/2017 CHIEF COMPLAINT: Followup gastric bypass. HISTORY OF PRESENT ILLNESS: Yessy Buchanan is a 52-year-old female who is status post Mynor-en-Y gastric bypass May 24, 2015. She is 1-1/2 years out. Separately, she had a panniculectomy 04/08/2017. Pain is well-controlled. She has lost 4 pounds in 1 week. At her height of 5 feet 4-3/4 inch frame, she comes in today weighing 228 pounds. Her highest weight was 341 pounds. Her ideal body weight is 144 pounds. She has maintained 113 pound weight loss. Body mass index reduced from 57.3 down to 38.3. Percent excess weight loss is 58%. Since her last visit 2 months ago, her weight is unchanged. PHYSICAL EXAM: VITAL SIGNS: 5 foot 4-3/4 inch frame, 223 pounds. Body mass index is 37.5. Vital Signs Temp 97.5 F L 04/11/17 11:25 Pulse 76 04/11/17 11:25 Resp 15 04/11/17 11:25 BP 109/62 04/11/17 11:25 Pulse Ox ABDOMEN: Soft, incisions clean dry and intact. No signs of infection or cellulitis. MUSCULOSKELETAL: No clubbing, cyanosis, or edema. NEURO: No focal or lateralizing signs. Cranial nerves II through XII grossly within normal limits. GENERAL: Well-developed, pleasant female in no acute distress. CHEST: Nonlabored respirations. Equal bilateral excursions. CARDIOVASCULAR: Regular rate and rhythm. HEENT: No sclerae icterus. Extraocular movements are grossly intact. Moist buccal mucosa. NECK: Supple without lymphadenopathy. PSYCH: Appropriate affect. Alert and oriented to person, place and time. ASSESSMENT: 1. Morbid obesity due to excess caloric intake. 2. Body mass index reduced from 57.3 down to 37.5 3. Status post Mynor-en-Y gastric bypass. 4. Status post massive weight loss 118 pounds. 5. Panniculitis. 6. Status post panniculectomy, 10 pounds. PLAN: 1. Continue AJIT drains. 2. Change dressing in 1 week. 3. Wear abdominal binder at all times. Objective - Vital Signs Vital signs: Vital Signs Temp 97.5 F L 04/11/17 11:25 Pulse 76 04/11/17 11:25 Resp 15 04/11/17 11:25 BP 109/62 04/11/17 11:25 Pulse Ox Intake & Output 04/10/17 04/11/17 04/11/17 18:59 06:59 18:59 Weight 101.559 kg
== END | disposition home or self-care (01) ==
LOC: BARWHC3 10:53
PROVIDERS: ATTEND Surgery Plastic and Reconstructive Surgery
DX: Z48.817 Encounter for surgical aftercare following surgery on the skin and subcutaneous tissue (principal); E66.01 Morbid (severe) obesity due to excess calories; M79.3 Panniculitis, unspecified; R63.4 Abnormal weight loss; Z68.37 Body mass index [BMI] 37.0-37.9, adult; Z98.84 Bariatric surgery status
CPT/HCPCS: 99212

== ENCOUNTER → 2017-04-17 | Outpatient (CLI) | payer MEDICARE, OTHER ==
[2017-04-17 13:50] VITALS: BP 121/56; PULSE 72; RESP 20; TEMP 98.7
--- NOTE | 2017-06-09 19:00 | P.PN ---
Subjective Progress Note Date: 04/17/17 DATE OF SERVICE: 04/17/2017 CHIEF COMPLAINT: Followup panniculectomy HISTORY OF PRESENT ILLNESS: Yessy Buchanan is a 52-year-old female who is status post Mynor-en-Y gastric bypass May 24, 2015. She is 1-1/2 years out. Separately, she had a panniculectomy 04/08/2017. She reports moderate AJIT output. Pain is well-controlled. No nausea. She has has 14 pounds in 1 week. At her height of 5 feet 4-3/4 inch frame, she comes in today weighing 210 pounds. Her highest weight was 341 pounds. Her ideal body weight is 144 pounds. She has maintained 131 pound weight loss. Body mass index reduced from 57.3 down to 35.3. Percent excess weight loss is 67%. . PHYSICAL EXAM: VITAL SIGNS: 5 foot 4-3/4 inch frame, 210 pounds. Body mass index is 35.3. Vital Signs Temp 98.7 F 04/17/17 13:45 Pulse 72 04/17/17 13:45 Resp 20 04/17/17 13:45 BP 121/56 04/17/17 13:45 Pulse Ox ABDOMEN: Soft, incisions clean dry and intact. No signs of infection or cellulitis. No palpable abdominal seromas. AJIT serosanguineous. MUSCULOSKELETAL: No clubbing, cyanosis, or edema. NEURO: No focal or lateralizing signs. Cranial nerves II through XII grossly within normal limits. GENERAL: Well-developed, pleasant female in no acute distress. CHEST: Nonlabored respirations. Equal bilateral excursions. CARDIOVASCULAR: Regular rate and rhythm. HEENT: No sclerae icterus. Extraocular movements are grossly intact. Moist buccal mucosa. NECK: Supple without lymphadenopathy. PSYCH: Appropriate affect. Alert and oriented to person, place and time. ASSESSMENT: 1. Morbid obesity due to excess caloric intake. 2. Body mass index reduced from 57.3 down to 35.3. 3. Status post Mynor-en-Y gastric bypass. 4. Status post massive weight loss 131 pounds. 5. Status post panniculectomy, 10 pounds. PLAN: 1. Continue AJIT drains. 2. Wear abdominal binder at all times. 3. Follow-up in 1 week. Objective - Vital Signs Vital signs: Vital Signs Temp 98.7 F 04/17/17 13:45 Pulse 72 04/17/17 13:45 Resp 20 04/17/17 13:45 BP 121/56 04/17/17 13:45 Pulse Ox Intake & Output 04/16/17 04/17/17 04/17/17 18:59 06:59 18:59 Weight 95.39 kg
== END | disposition home or self-care (01) ==
LOC: BARWHC3 12:44
PROVIDERS: ATTEND Surgery Plastic and Reconstructive Surgery
DX: Z09 Encounter for follow-up examination after completed treatment for conditions other than malignant neoplasm (principal); E66.01 Morbid (severe) obesity due to excess calories; Z68.35 Body mass index [BMI] 35.0-35.9, adult; Z98.84 Bariatric surgery status; Z98.890 Other specified postprocedural states
CPT/HCPCS: 99212

== ENCOUNTER → 2017-04-25 | Outpatient (CLI) | payer MEDICARE, OTHER ==
[2017-04-25 14:15] VITALS: BP 106/74; PULSE 62; RESP 16; TEMP 98.4; BMI 35.9
--- NOTE | 2017-06-10 17:56 | P.PN ---
Subjective Progress Note Date: 04/25/17 DATE OF SERVICE: 04/25/2017 CHIEF COMPLAINT: Followup panniculectomy HISTORY OF PRESENT ILLNESS: Yessy Buchanan is a 52-year-old female who is status post Mynor-en-Y gastric bypass May 24, 2015. She is 1-1/2 years out. Separately, she had a panniculectomy 04/08/2017. She comes in with a 4 pound weight gain in 1 week. She also reports some lower back pain. Otherwise AJIT drainage decreased from the right side. She still has moderate drainage of 50 mL of the left. At her height of 5 feet 4-3/4 inch frame, she comes in today weighing 214 pounds. Her highest weight was 341 pounds. Her ideal body weight is 144 pounds. She has maintained 127 pound weight loss. Body mass index reduced from 57.3 down to 36.0. Percent excess weight loss is 64%. PHYSICAL EXAM: VITAL SIGNS: 5 foot 4-3/4 inch frame, 214 pounds. Body mass index is 36.0. Vital Signs Temp 98.4 F 04/25/17 14:09 Pulse 62 04/25/17 14:09 Resp 16 04/25/17 14:09 BP 106/74 04/25/17 14:09 Pulse Ox ABDOMEN: Incisions granulated. No abdominal absorbable. No signs of infection. MUSCULOSKELETAL: No clubbing, cyanosis, or edema. NEURO: No focal or lateralizing signs. Cranial nerves II through XII grossly within normal limits. GENERAL: Well-developed, pleasant female in no acute distress. CHEST: Nonlabored respirations. Equal bilateral excursions. CARDIOVASCULAR: Regular rate and rhythm. HEENT: No sclerae icterus. Extraocular movements are grossly intact. Moist buccal mucosa. NECK: Supple without lymphadenopathy. PSYCH: Appropriate affect. Alert and oriented to person, place and time. ASSESSMENT: 1. Morbid obesity due to excess caloric intake. 2. Body mass index reduced from 57.3 down to 36.0. 3. Status post Mynor-en-Y gastric bypass. 4. Status post massive weight loss 127 pounds. 5. Status post panniculectomy, 10 pounds. PLAN: 1. Continue with binder. 2. Binder changed. 3. Follow-up in 1 week for removal of the left-sided drain. Objective - Vital Signs Vital signs: Vital Signs Temp 98.4 F 04/25/17 14:09 Pulse 62 04/25/17 14:09 Resp 16 04/25/17 14:09 BP 106/74 04/25/17 14:09 Pulse Ox Intake & Output 04/24/17 04/25/17 04/25/17 18:59 06:59 18:59 Weight 97.296 kg
== END | disposition home or self-care (01) ==
LOC: BARWHC3 11:13
PROVIDERS: ATTEND Surgery Plastic and Reconstructive Surgery
DX: Z09 Encounter for follow-up examination after completed treatment for conditions other than malignant neoplasm (principal); E66.01 Morbid (severe) obesity due to excess calories; Z68.36 Body mass index [BMI] 36.0-36.9, adult; Z98.84 Bariatric surgery status; Z98.890 Other specified postprocedural states
CPT/HCPCS: 99211

== ENCOUNTER → 2017-05-01 | Outpatient (CLI) | payer MEDICARE, OTHER ==
[2017-05-01 13:27] VITALS: BP 129/76; PULSE 73; TEMP 98.3; BMI 35.5
--- NOTE | 2017-06-11 20:36 | P.PN ---
Subjective Progress Note Date: 05/01/17 DATE OF SERVICE: 05/01/2017 CHIEF COMPLAINT: Followup panniculectomy HISTORY OF PRESENT ILLNESS: Yessy Buchanan is a 52-year-old female who is status post Mynor-en-Y gastric bypass May 24, 2015. She is 1-1/2 years out. Separately, she had a panniculectomy 04/08/2017. She comes in with a 2 pound weight loss in 1 week. AJIT outputs of left drain decreased to under 50 mL a day. She denies any abdominal pain. She is tolerating diet. At her height of 5 feet 4-3/4 inch frame, she comes in today weighing 211 pounds. Her highest weight was 341 pounds. Her ideal body weight is 144 pounds. She has maintained 130 pound weight loss. Body mass index reduced from 57.3 down to 35.5. Percent excess weight loss is 66%. PHYSICAL EXAM: VITAL SIGNS: 5 foot 4-3/4 inch frame, 211 pounds. Body mass index is 35.5. Vital Signs Temp 98.3 F 05/01/17 13:24 Pulse 73 05/01/17 13:24 Resp BP 129/76 05/01/17 13:24 Pulse Ox ABDOMEN: Incisions granulated. No signs of infection. AJIT serous and discontinued at bedside. MUSCULOSKELETAL: No clubbing, cyanosis, or edema. NEURO: No focal or lateralizing signs. Cranial nerves II through XII grossly within normal limits. GENERAL: Well-developed, pleasant female in no acute distress. CHEST: Nonlabored respirations. Equal bilateral excursions. CARDIOVASCULAR: Regular rate and rhythm. HEENT: No sclerae icterus. Extraocular movements are grossly intact. Moist buccal mucosa. NECK: Supple without lymphadenopathy. PSYCH: Appropriate affect. Alert and oriented to person, place and time. ASSESSMENT: 1. Morbid obesity due to excess caloric intake. 2. Body mass index reduced from 57.3 down to 35.5 3. Status post Mynor-en-Y gastric bypass. 4. Status post massive weight loss 130 pounds. 5. Status post panniculectomy, 10 pounds. PLAN: 1. Her final AJIT along the left side was discontinued. 2. Dressing may be For 2 days. 3. Okay to shower in 2 days. 4. Risks of abdominal seroma including swelling was described. Recommend follow-up in 1 week as all AJIT drains were discontinued. 5. Wear abdominal binder at all times.
== END | disposition home or self-care (01) ==
LOC: BARWHC3 12:21
PROVIDERS: ATTEND Surgery Plastic and Reconstructive Surgery
DX: Z09 Encounter for follow-up examination after completed treatment for conditions other than malignant neoplasm (principal); E66.01 Morbid (severe) obesity due to excess calories; Z68.35 Body mass index [BMI] 35.0-35.9, adult; Z98.84 Bariatric surgery status; Z98.890 Other specified postprocedural states
CPT/HCPCS: 99212

== ENCOUNTER → 2017-05-16 | Outpatient (CLI) | payer MEDICARE, OTHER ==
[2017-05-16 11:35] VITALS: BP 119/79; PULSE 56; RESP 20; TEMP 98.3; BMI 36.0
--- NOTE | 2017-05-16 12:38 | US ---
EXAMINATION TYPE: US abdomen limited DATE OF EXAM: 05/16/2017 COMPARISON: NONE CLINICAL HISTORY: T79.2XXA SEROMA. Pt had tummy tuck, is having swelling at incision, ?seroma Lower ABD at incision site where pt has swelling shows a fluid collection= 11.4 cm in transverse an d 1.2 cm AP measurement IMPRESSION: Fluid collection likely reflecting seroma. Infected collection is difficult to exclude.
--- NOTE | 2017-06-26 08:00 | P.PN ---
Subjective Progress Note Date: 05/16/17 DATE OF SERVICE: 05/16/2017 CHIEF COMPLAINT: Followup panniculectomy HISTORY OF PRESENT ILLNESS: Yessy Buchanan is a 52-year-old female who is status post Mynor-en-Y gastric bypass May 24, 2015. She is 1-1/2 years out. Separately, she had a panniculectomy 04/08/2017. She comes in with a 3 pound weight gain in 2 weeks. All AJIT drains were previously discontinued. She reports her abdominal binders fairly tight. She is eager to return to work. At her height of 5 feet 4-3/4 inch frame, she comes in today weighing 214 pounds. Her highest weight was 341 pounds. Her ideal body weight is 144 pounds. She has maintained 137 pound weight loss. Body mass index reduced from 57.3 down to 36.0. Percent excess weight loss is 64%. PHYSICAL EXAM: VITAL SIGNS: 5 foot 4-3/4 inch frame, 214 pounds. Body mass index is 36.0 Vital Signs Temp 98.3 F 05/16/17 11:12 Pulse 56 L 05/16/17 11:12 Resp 20 05/16/17 11:12 BP 119/79 05/16/17 11:12 Pulse Ox ABDOMEN: Soft, all incisions carefully granulated. No signs of infection. Pressure ulcerations from binder identified along the flanks. Mild fullness along the subcutaneous tissue suspicious for seroma. MUSCULOSKELETAL: No clubbing, cyanosis, or edema. NEURO: No focal or lateralizing signs. Cranial nerves II through XII grossly within normal limits. GENERAL: Well-developed, pleasant female in no acute distress. CHEST: Nonlabored respirations. Equal bilateral excursions. CARDIOVASCULAR: Regular rate and rhythm. HEENT: No sclerae icterus. Extraocular movements are grossly intact. Moist buccal mucosa. NECK: Supple without lymphadenopathy. PSYCH: Appropriate affect. Alert and oriented to person, place and time. ASSESSMENT: 1. Morbid obesity due to excess caloric intake. 2. Body mass index reduced from 57.3 down to 36.0 3. Status post Mynor-en-Y gastric bypass. 4. Status post massive weight loss 130 pounds. 5. Status post panniculectomy, 10 pounds. 6. Abdominal wall seroma. PLAN: 1. Recommend ultrasound-guided aspiration of abdominal wall seroma. 2. Return to work delayed until seroma is addressed. Otherwise weightlifting restriction of no more than 4 pounds in 4 weeks.
== END | disposition home or self-care (01) ==
LOC: BARWHC3 10:29
PROVIDERS: ATTEND Surgery Plastic and Reconstructive Surgery
DX: Z48.817 Encounter for surgical aftercare following surgery on the skin and subcutaneous tissue (principal); E66.01 Morbid (severe) obesity due to excess calories; R63.4 Abnormal weight loss; L76.32 Postprocedural hematoma of skin and subcutaneous tissue following other procedure; T79.2XXA Traumatic secondary and recurrent hemorrhage and seroma, initial encounter; Z68.36 Body mass index [BMI] 36.0-36.9, adult; Z98.890 Other specified postprocedural states; Z98.84 Bariatric surgery status
CPT/HCPCS: 76705; G0463; 99211

== ENCOUNTER 2017-05-30 12:38 | Day surgery (SDC) | payer MEDICARE, OTHER ==
--- NOTE | 2017-05-30 16:02 | US ---
ULTRASOUND GUIDED SUBCUTANEOUS ANTERIOR ABDOMINAL WALL SEROMA FNA: CLINICAL HISTORY: Postoperative seroma FINDINGS: The procedure was explained to the patient. The risks, complications, benefits and alternatives were discussed and any questions were answered. Informed consent was obtained. Patient was placed supin e on the ultrasound table and prepped and draped in the usual sterile fashion. Utilizing a 22 gauge needle, a single pass was made into the collection there is aspiration approximately 25 cc of yellow serous fluid. No residual collection post aspiration. Referring physician did not wish for a drain to be placed. Patient was stable throughout the procedure. Pathology is pending. All elements of maximal barrier and sterile technique were utilized. IMPRESSION: 1. Successful ultrasound guided FNA of a anterior subcutaneous postoperative seroma.
[2017-05-30 16:40] VITALS: BP 143/70; PULSE 48; RESP 18; TEMP 97.6
== END 2017-05-30 14:35 | disposition home or self-care (01) ==
LOC: RADPROMAIN 12:38
PROVIDERS: ATTEND Surgery Plastic and Reconstructive Surgery
DX: L76.34 Postprocedural seroma of skin and subcutaneous tissue following other procedure (principal); R10.31 Right lower quadrant pain; R10.32 Left lower quadrant pain
CPT/HCPCS: 10022; 76942; 87070; 87205

== ENCOUNTER → 2017-06-12 | Outpatient (CLI) | payer MEDICARE, OTHER ==
[2017-06-12 13:35] VITALS: BP 121/74; PULSE 65; RESP 16; TEMP 97.9; BMI 35.6
--- NOTE | 2017-07-27 21:26 | P.PN ---
Subjective Progress Note Date: 06/12/17 DATE OF SERVICE: 06/12/2017 CHIEF COMPLAINT: Followup panniculectomy HISTORY OF PRESENT ILLNESS: Yessy Buchanan is a 52-year-old female who is status post Mynor-en-Y gastric bypass May 24, 2015. She is 2 years out. Separately, she had a panniculectomy 04/08/2017. She comes in with a 2 pound weight loss in 4 weeks. She reports pulling on the abdomen. Overall, she is happy with the surgical result. She reports having increased Paxil for the holidays. She had a fine-needle aspiration of abdominal wall seroma where 25 mL was removed. At her height of 5 feet 4-3/4 inch frame, she comes in today weighing 212 pounds. Her highest weight was 341 pounds. Her ideal body weight is 144 pounds. She has maintained 129 pound weight loss. Body mass index reduced from 57.3 down to 35.6. Percent excess weight loss is 65%. PHYSICAL EXAM: VITAL SIGNS: 5 foot 4-3/4 inch frame, 212 pounds. Body mass index is 35.6 Vital Signs Temp 97.9 F 06/12/17 13:33 Pulse 65 06/12/17 13:33 Resp 16 06/12/17 13:33 BP 121/74 06/12/17 13:33 Pulse Ox ABDOMEN: Soft, all incisions granulated. Nontender. No palpable abdominal wall seromas. No incisional hernias. MUSCULOSKELETAL: No clubbing, cyanosis, or edema. NEURO: No focal or lateralizing signs. Cranial nerves II through XII grossly within normal limits. GENERAL: Well-developed, pleasant female in no acute distress. CHEST: Nonlabored respirations. Equal bilateral excursions. CARDIOVASCULAR: Regular rate and rhythm. HEENT: No sclerae icterus. Extraocular movements are grossly intact. Moist buccal mucosa. NECK: Supple without lymphadenopathy. PSYCH: Appropriate affect. Alert and oriented to person, place and time. ASSESSMENT: 1. Morbid obesity due to excess caloric intake. 2. Body mass index reduced from 57.3 down to 35.6 3. Status post Mynor-en-Y gastric bypass. 4. Status post massive weight loss 129 pounds. 5. Status post panniculectomy, 10 pounds. 6. Abdominal wall seroma. PLAN: 1. She may continue to her abdominal binder for comfort. 2. No recurrent abdominal seroma. 3. May follow up as needed. Objective - Vital Signs Vital signs: Vital Signs Temp 97.9 F 06/12/17 13:33 Pulse 65 06/12/17 13:33 Resp 16 06/12/17 13:33 BP 121/74 06/12/17 13:33 Pulse Ox Intake & Output 06/11/17 06/12/17 06/12/17 18:59 06:59 18:59 Weight 96.388 kg
== END | disposition home or self-care (01) ==
LOC: BARWHC3 13:16
PROVIDERS: ATTEND Surgery Plastic and Reconstructive Surgery
DX: Z09 Encounter for follow-up examination after completed treatment for conditions other than malignant neoplasm (principal); K91.872 Postprocedural seroma of a digestive system organ or structure following a digestive system procedure; E66.01 Morbid (severe) obesity due to excess calories; R63.4 Abnormal weight loss; Z98.84 Bariatric surgery status; Z68.35 Body mass index [BMI] 35.0-35.9, adult; Z98.890 Other specified postprocedural states
CPT/HCPCS: 99211

== ENCOUNTER → 2018-04-30 | Outpatient (CLI) | payer MEDICARE, OTHER ==
[2018-04-30 15:20] VITALS: BP 116/76; PULSE 71; TEMP 98; BMI 34.9
--- NOTE | 2018-04-30 15:44 | P.PN ---
Subjective Progress Note Date: 04/30/18 HPI: She is walking more. She is the smallest that she has been since surgery. She is 3 years out. Has occassional abdominal pain at the left upper quadrant. No constipation. She has food getting stuck. ABDOMEN: No peritonitis. Soft nontender. A/P: 1. She reports occassional epigastric pain 1-2x/month Objective - Vital Signs Vital signs: Vital Signs Temp 98.0 F 04/30/18 15:18 Pulse 71 04/30/18 15:18 Resp BP 116/76 04/30/18 15:18 Pulse Ox Intake & Output 04/29/18 04/30/18 04/30/18 18:59 06:59 18:59 Weight 94.347 kg
[2018-04-30 16:56] LABS: HCT 39.6 % (34.0-46.0); HGB 12.7 gm/dL (11.4-16.0); Hypochromasia Slight; MCH 29.1 pg (25.0-35.0); MCHC 32.1 g/dL (31.0-37.0); MCV 90.6 fL (80.0-100.0); Mean Platelet Volume 8.7; Platelet Count 256 k/uL (150-450); RBC 4.37 m/uL (3.80-5.40); RDW 14.3 % (11.5-15.5); WBC 5.7 k/uL (3.8-10.6)
[2018-04-30 17:15] LABS: Partial Thromboplastin Time 24.8 sec (22.0-30.0); Prothrombin Time 10.7 sec (9.0-12.0)
[2018-05-01 03:20] LABS: Anion Gap 6.1 mmol/L (4.00-12.00); Calcium 8.8 mg/dL (8.7-10.3); Carbon Dioxide 28.9 mmol/L (21.6-31.8); LDL Cholesterol,Calculated 74.2 mg/dL (0.0-131.0); Magnesium 1.6 mg/dL (1.5-2.4); Phosphorus 3.6 mg/dL (2.4-5.1); Total Bilirubin 0.2 mg/dL (0.3-1.2); VLDL Calculation 16.8 mg/dL (5.00-40.00)
[2018-05-01 03:36] LABS: Parathyroid Hormone Intact 106.6 pg/mL (14.0-72.0)
[2018-05-01 03:49] LABS: Hemoglobin A1C 5.4 % (4.0-6.0)
[2018-05-01 03:56] LABS: Iron Saturation 20.55 (12.00-45.00)
[2018-05-01 04:05] LABS: Vitamin D 25 Hydroxy 39.1 ng/mL (30.0-100.0)
[2018-05-01 04:35] LABS: Folate, Serum 14.4 ng/mL
[2018-05-01 13:56] LABS: Zinc, Serum 64 ug/dL (60-130)
[2018-05-02 08:12] LABS: Vitamin B1 73 ug/L (38-122)
[2018-05-02 08:17] LABS: Vitamin A 39 ug/dL (38-106)
== END ==
LOC: BARWHC3 14:22
PROVIDERS: ATTEND Surgery Plastic and Reconstructive Surgery
DX: Z48.815 Encounter for surgical aftercare following surgery on the digestive system (principal); R10.11 Right upper quadrant pain; E21.1 Secondary hyperparathyroidism, not elsewhere classified; E89.1 Postprocedural hypoinsulinemia; D50.9 Iron deficiency anemia, unspecified; K90.9 Intestinal malabsorption, unspecified; E44.0 Moderate protein-calorie malnutrition; E55.9 Vitamin D deficiency, unspecified; K74.1 Hepatic sclerosis; N19 Unspecified kidney failure; K50.90 Crohn's disease, unspecified, without complications
CPT/HCPCS: 84255; 84134; 84425; 80061; 80053; 82607; 82728; 82525; 82746; 83540; 83550; 83735; 84100; 84443; 84590; 84630; 85027; 85610; 85730; 82306; 83970; 83036; 36415; G0463; 99211

== ENCOUNTER → 2018-08-13 | Outpatient (CLI) | payer MEDICARE, OTHER ==
--- NOTE | 2018-08-13 16:37 | P.PN ---
Subjective Progress Note Date: 08/13/18 HPI: She reports 6 weeks of lower abdominal pain. She has gained 15 pounds in 3 months. No constipation. ABDOMEN: No peritonitis ASSESSMENT: 1. Morbid obesity PLAN: 1. CT of the abdomen and pelvis of the lower abdomen. 2. EGD with balloon dilation
[2018-08-14 11:32] VITALS: BP 114/72; PULSE 58; TEMP 97.8; BMI 37.0
== END | disposition home or self-care (01) ==
LOC: BARWHC3 14:22
PROVIDERS: ATTEND Surgery Plastic and Reconstructive Surgery
DX: E66.01 Morbid (severe) obesity due to excess calories (principal); Z68.37 Body mass index [BMI] 37.0-37.9, adult
CPT/HCPCS: 99211

== ENCOUNTER → 2018-09-01 | Day surgery (SDC) | payer MEDICARE, OTHER ==
[2018-08-27 15:03] VITALS: BMI 37.2
[~2018-09-01] MED LIST changes: -DEXAMETHASONE SOD PHOSPHATE 10 MG/ML 1 ML VIAL IV ONE; +GLYCOPYRROLATE 0.2 MG/ML 2 ML VIAL ONE; -HYDROmorphone 1 MG/ML 1 ML SYRINGE IVP PRN; +KETAMINE 10 MG/ML 20 ML VIAL ONE; +LIDOCAINE 1% INJ 10MG/ML (20 ML MDV) ONE; -MIDAZOLAM 2 MG/2 ML VIAL IV PRN; -ONDANSETRON 4 MG/2 ML VIAL IVP ONE; +PROPOFOL 10 MG/ML 20 ML VIAL IV ONE; -ceFAZolin IN SWFI 2 GM/20 ML SYRINGE IVP ONE
[2018-09-01 10:40] VITALS: TEMP 97.1
--- NOTE | 2018-09-01 12:37 | P.GSHP ---
History of Present Illness H&P Date: 09/01/18 CHIEF COMPLAINT: GERD HISTORY OF PRESENT ILLNESS: The patient is a 53-year-old female who presents reports gastroesophageal reflux disease. Upper endoscopy was offered for further evaluation and management. PAST MEDICAL HISTORY: Please see list. PAST SURGICAL HISTORY: Please see list. MEDICATIONS: Please see list. ALLERGIES: Please see list. SOCIAL HISTORY: No illicit drug use FAMILY HISTORY: No reports of Crohn disease or ulcerative colitis. REVIEW OF ORGAN SYSTEMS: CONSTITUTIONAL: No reports of fevers or chills. GI: Denies any blood in stools or constipation. PHYSICAL EXAM: VITAL SIGNS: Stable GENERAL: Well-developed and pleasant in no acute distress. HEENT: No scleral icterus. Extraocular movements grossly intact. Moist buccal mucosa. NECK: Supple without lymphadenopathy. CHEST: Unlabored respirations. Equal bilateral excursions. CARDIOVASCULAR: Regular rate and rhythm. Distal 2+ pulses. ABDOMEN: Soft, nondistended. MUSCULOSKELETAL: No clubbing, cyanosis, or edema. ASSESSMENT: 1. Gastroesophageal reflux disease PLAN: 1. Recommend proceeding with an upper endoscopy Past Medical History Past Medical History: Diabetes Mellitus, Deep Vein Thrombosis (DVT), Pulmonary Embolus (PE), Sleep Apnea/CPAP/BIPAP Additional Past Medical History / Comment(s): HX heart murmur, kidney stones, DOES NOT USE CPAP. PE X2. ANEMIA, HX IRON INFUSION X1. HAVING ABD PAIN. History of Any Multi-Drug Resistant Organisms: None Reported Past Surgical History: Bariatric Surgery, Cholecystectomy, Hysterectomy, Tonsillectomy Additional Past Surgical History / Comment(s): cataract removal both eyes, benign growths removed from head, fatty tumor removed shoulder, lithotripsy x5, Mynor-en Y-Gastric bypass 05-24-2015, panniculectomy 04-08-17. EGD, COLONOSCOPY. Past Anesthesia/Blood Transfusion Reactions: Family History of Problems w/ Anesthesia, Motion Sickness, Postoperative Nausea & Vomiting (PONV) Additional Past Anesthesia/Blood Transfusion Reaction / Comment(s): BROTHER HAS PROBLEMS, SLOW AWAKENING FROM ANESTHESIA. Smoking Status: Former smoker - Past Family History Father History Unknown: Yes Family Medical History: No Reported History Mother Family Medical History: Congestive Heart Failure (CHF), Diabetes Mellitus, Hypertension Additional Family Medical History / Comment(s): mental disorder, alcoholism, Medications and Allergies Home Medications Medication Instructions Recorded Confirmed Type Aspirin 81 mg PO DAILY 07/15/15 04/03/19 History Multivitamins, Thera [Multivitamin] 2 tab PO DAILY 07/06/15 08/27/18 History PARoxetine HCL [Paxil] 30 mg PO HS 07/18/16 08/27/18 History Calcium Citrate 500 mg PO DAILY 10/03/16 09/01/18 History Cholecalciferol [Vitamin D3] 1,000 unit PO DAILY 12/26/16 09/01/18 History Calcium Carb/Magnesium Hydrox 1 each PO DAILY 08/27/18 09/01/18 History [Rolaids Chewable Tablet] Allergies Allergy/AdvReac Type Severity Reaction Status Date / Time metoclopramide HCl AdvReac SEVERE Verified 09/01/18 10:36 [From Reglan] ANXIETY prochlorperazine edisylate AdvReac anxiety Verified 09/01/18 10:36 [From Compazine] severe prochlorperazine maleate AdvReac anxiety Verified 09/01/18 10:36 [From Compazine] severe ziprasidone HCl [From Geodon] AdvReac anxiety Verified 09/01/18 10:36 severe ziprasidone mesylate AdvReac anxiety Verified 09/01/18 10:36 [From Geodon] severe bleach AdvReac Dyspnea Uncoded 09/01/18 10:36 tomatoes AdvReac Itching Uncoded 09/01/18 10:36 Surgical - Exam Vital Signs Temp Pulse Resp BP Pulse Ox 97.1 F L 52 L 16 163/75 100 09/01/18 10:36 09/01/18 10:36 09/01/18 10:36 09/01/18 10:36 09/01/18 10:36
--- NOTE | 2018-09-01 13:44 | P.PCN ---
Date of Procedure: 09/01/18 Description of Procedure: PREOPERATIVE DIAGNOSIS: Dysphagia. Epigastric abdominal pain POSTOPERATIVE DIAGNOSIS: Dysphagia. Epigastric abdominal pain Gastrojejunal stricture without chronic ulcer without perforation OPERATION: Esophagogastrojejunoscopy with balloon dilatation 20 mm. SURGEON: Blanka Cota MD ANESTHESIA: MAC. INDICATIONS: The patient is a 53-year-old female who presents with a history of dysphagia, gastric bypass including epigastric abdominal pain. Benefits and risks of the procedure were described. Informed consent was obtained. DESCRIPTION: The patient was brought into the endoscopy suite and laid in the left lateral decubitus position. After a timeout was confirmed, the procedure was initiated. An Olympus gastroscope was passed along the posterior oropharynx down to the distal esophagus where the squamocolumnar junction was unremarkable. The gastric pouch was entered. A gastrojejunal stricture of 18 mm was found as the adult gastroscope was 9.5 mm in size. A Trendabl balloon dilator was placed through the scope. Final insufflation up to 20 mm was performed with a total of 2 minutes. The scope was advanced up to 60 cm from the incisors into the Mynor limb. The mucosa of the gastrojejunal anastomosis was intact. No chronic gastrojejunal marginal ulcer was encountered. No full-thickness injury was encountered. The GI tract was desufflated. The patient tolerated the procedure well. FINDINGS: Squamocolumnar junction unremarkable at 37 cm. Stricture of approximately 18 mm encountered. No Chronic gastrojejunal ulceration encountered. Successful balloon dilatation to 20 mm. Diaphragmatic hiatus at 40 cm. Gastric pouch 3 cm. RECOMMENDATIONS: Upper endoscopy as needed Plan - Discharge Summary Discharge Rx Participant: Yes New Discharge Prescriptions: No Action RX: Aspirin 81 mg PO DAILY Multivitamins, Thera [Multivitamin] 2 tab PO DAILY PARoxetine HCL [Paxil] 30 mg PO HS RX: Calcium Citrate 500 mg PO DAILY Cholecalciferol [Vitamin D3] 1,000 unit PO DAILY Calcium Carb/Magnesium Hydrox [Rolaids Chewable Tablet] 1 each PO DAILY Discharge Medication List RX: Aspirin 81 mg PO DAILY 12/08/14 [History] Multivitamins, Thera [Multivitamin] 2 tab PO DAILY 07/06/15 [History] PARoxetine HCL [Paxil] 30 mg PO HS 07/18/16 [History] RX: Calcium Citrate 500 mg PO DAILY 10/03/16 [History] Cholecalciferol [Vitamin D3] 1,000 unit PO DAILY 12/26/16 [History] Calcium Carb/Magnesium Hydrox [Rolaids Chewable Tablet] 1 each PO DAILY 08/27/18 [History] Follow up Appointment(s)/Referral(s): [facility] [NON-STAFF] - As Needed Patient Instructions/Handouts: Esophageal Dilation (IP), Esophageal Dilation (DC) Activity/Diet/Wound Care/Special Instructions: Regular diet today. Discharge Disposition: HOME SELF-CARE
[2018-09-01 14:15] VITALS: RESP 18
[2018-09-01 14:17] VITALS: BP 159/80; PULSE 61
== END | disposition home or self-care (01) ==
LOC: ORWHC2ENDO 10:22
PROVIDERS: ATTEND Surgery Plastic and Reconstructive Surgery
DX: K56.699 Other intestinal obstruction unspecified as to partial versus complete obstruction (principal); Z98.84 Bariatric surgery status; K29.50 Unspecified chronic gastritis without bleeding; K21.9 Gastro-esophageal reflux disease without esophagitis; E66.01 Morbid (severe) obesity due to excess calories; Z68.37 Body mass index [BMI] 37.0-37.9, adult; E11.9 Type 2 diabetes mellitus without complications; Z86.718 Personal history of other venous thrombosis and embolism; Z86.711 Personal history of pulmonary embolism; G47.33 Obstructive sleep apnea (adult) (pediatric); I42.9 Cardiomyopathy, unspecified; Z87.891 Personal history of nicotine dependence; Z79.82 Long term (current) use of aspirin; Z79.899 Other long term (current) drug therapy; Z88.8 Allergy status to other drugs, medicaments and biological substances; Z91.018 Allergy to other foods; Z91.048 Other nonmedicinal substance allergy status
CPT/HCPCS: 88305; 43239; 43245; J2001; J2704; C1726; 43249

== ENCOUNTER → 2018-09-01 | Outpatient (CLI) | payer MEDICARE, OTHER ==
--- NOTE | 2018-09-02 09:27 | CT ---
EXAMINATION TYPE: CT abdomen pelvis w con DATE OF EXAM: 09/01/2018 HISTORY: Bilateral lower abdominal pain. CT DLP: 1906mGycm Automated Exposure Control for Dose Reduction was Utilized. CONTRAST: CT scan of the abdomen and pelvis is performed with IV Contrast, patient injected with 100ml mL of Is ovue 300. COMPARISON: 10/04/2016 FINDINGS: LUNG BASES: Multifocal trace pleural thickening is dependent and may relate to atelectasis, overall u nchanged from 2017. LIVER/GB: Unremarkable hepatic morphology. Very mild intrahepatic biliary ductal dilatation and extra hepatic biliary ductal dilatation are stable in this postcholecystectomy patient. No focal hepatic m asses appreciated. PANCREAS: No significant abnormality is seen. SPLEEN: No significant abnormality is seen. ADRENALS: No significant abnormality is seen. KIDNEYS: There is a 2 mm upper pole nonobstructing right renal calculus there is also a 5 mm too smal l to accurately characterize right renal lesion. There is right-sided pelvocaliectasis without mario hydronephrosis. BOWEL: There is swirling of the central mesenteric vasculature thickening on series 3 image 43 and ex tending through image 54. Given this patient's history of a partial gastrectomy internal hernia remai ns a possibility. No dilated loops of small bowel are seen at this time. There is a moderate degree o f retained fecal debris and area of colonic narrowing of the splenic flexure measuring approximately 6.5 cm that could relate to colonic spasm or constricting colonic neoplasm. LYMPH NODES: No greater than 1cm abdominal or pelvic lymph nodes are appreciated. OSSEOUS STRUCTURES: Stable left femoral geographic peripherally sclerotic indeterminant femoral neck lesion in comparison to 10/04/2016. This could be a degenerative basis. Grade 1 anterolisthesis is see n of L5 on S1 with a lateral pars interarticularis defects. IMPRESSION: 1. There is central swirling of the vasculature, new from the prior of 2016 that although is a nonspe cific finding can be seen in internal hernia in this patient with partial gastrectomy. No dilated sma ll bowel at this time. 2. Focal colonic narrowing at the splenic flexure that may relate to colonic spasm or constricting ne oplasm. Colonoscopy could be considered. Moderate degree fecal stasis.
== END | disposition home or self-care (01) ==
LOC: RADCTMAIN 14:48
PROVIDERS: ATTEND Surgery Plastic and Reconstructive Surgery
DX: K56.699 Other intestinal obstruction unspecified as to partial versus complete obstruction (principal); Z90.3 Acquired absence of stomach [part of]
CPT/HCPCS: 74177; Q9967

== ENCOUNTER → 2019-02-25 | Outpatient (CLI) | payer MEDICARE, OTHER ==
--- NOTE | 2019-02-25 17:43 | P.PN ---
Subjective Progress Note Date: 02/25/19 DATE OF SERVICE: 02/25/2019 CHIEF COMPLAINT: Followup gastric bypass HISTORY OF PRESENT ILLNESS: Yessy Buchanan is a 54-year-old female who is status post Mynor-en-Y gastric bypass May 24, 2015. She is 4 years out. She is craving sugary foods. Her weight is stable. She had history of abdominal pain with small bowel obstruction at an outside facility. She reports eating when she is depressed or bored. She reports occasional generalized abdominal pain. At her height of 5 feet 4-3/4 inch frame, she comes in weighing 221 pounds unchanged from 7 months ago. Her highest weight was 341 pounds. Her ideal body weight is 144 pounds. She has maintained 120 pound weight loss. Body mass index reduced from 57.3 down to 37.1. Percent excess weight loss is 61%. PAST MEDICAL HISTORY: 1. Diabetes type 2, resolved. 2. Osteoarthritis of the bilateral knees. 3. Osteoarthritis of the lower back. 4. Iron deficiency anemia. 5. Chronic recurrent deep venous thromboses over 4 events. 6. Depression. 7. Vitamin D deficiency. 8. Vitamin B12 deficiency. 9. History of brain disorder with cysts requiring surgery. 10. Gastroesophageal reflux disease, resolved. 11. History obstructive sleep apnea, improved. 12. Morbid obesity next calories, BMI 57.3 initial PAST SURGICAL HISTORY: 1. She reports lithotripsy for kidney stones at least 5 times. 2. Hysterectomy. 3. Tonsillectomy. 4. Bilateral cataract eye extraction. 5. Removal of benign growths along the scalp. 6. History of fatty tumor removal from the left shoulder. 7. Status post Mynor-en-Y gastric bypass. 8. Colonoscopy. 9. Panniculectomy MEDICATIONS: 1. Xarelto. 2. MiraLax. 3. Paxil. 4. Multivitamin. 5. Vitamin D. 6. Calcium citrate. 7. Dulcolax. 8. Aspirin. ALLERGIES: 1. COMPAZINE. 2. GEODON. 3. TOMATOES. SOCIAL HISTORY: Former tobacco user. FAMILY HISTORY: Pertinent for morbid obesity including gallbladder disease. REVIEW OF SYSTEMS: CONSTITUTIONAL: Highest weight of 341 pounds for a 5 foot 4-3/4 inches. [place] body weight of 149 pounds. Body mass index reduced from 57.3 ENDOCRINE: Resolved diabetes type 2. No thyroid disorders. GASTROINTESTINAL: No reports of dumping syndrome. Had recent small bowel obstruction. RESPIRATORY: Improved obstructive sleep apnea. No asthma MUSCULOSKELETAL: Reports diffuse osteoarthritis of the lower back. NEURO: Reports dizziness. Past history of stroke PSYCH: History of depressive disorder. No anxiety. HEMATOLOGIC: History of prior blood clots, which she has undergone evaluation with her head char filter tank tender and has been advised to continue during the perioperative period. HEENT: Denies any troubles with vision or hearing. CARDIOVASCULAR: History of heart arrhythmia. SKIN: History of panniculitis now resolved with panniculectomy PHYSICAL EXAM: VITAL SIGNS: 5 foot 4-3/4 inch frame, 221 pounds. Body mass index is 37.1 Vital Signs Temp 98.4 F 02/25/19 17:00 Pulse 58 L 02/25/19 17:00 Resp BP 123/71 02/25/19 17:00 Pulse Ox ABDOMEN: No peritonitis. Soft nontender. No hernia. MUSCULOSKELETAL: No clubbing, cyanosis, or edema. NEURO: No focal or lateralizing signs. Cranial nerves II through XII grossly within normal limits. GENERAL: Well-developed, pleasant female in no acute distress. CHEST: Nonlabored respirations. Equal bilateral excursions. CARDIOVASCULAR: Regular rate and rhythm. HEENT: No sclerae icterus. Extraocular movements are grossly intact. Moist buccal mucosa. NECK: Supple without lymphadenopathy. PSYCH: Appropriate affect. Alert and oriented to person, place and time. SKIN: Well perfused. Good skin turgor. STUDIES: CT of the abdomen and pelvis independently reviewed showing internal hernia REPORT: CT also shows narrowing along the colon. ASSESSMENT: 1. Morbid obesity due to excess caloric intake. 2. Body mass index reduced from 57.3 down to 37.1 3. Status post Mynor-en-Y gastric bypass. 4. Dysphagia 5. Diabetes type 2, 6. Osteoarthritis of the bilateral knees. 7. Osteoarthritis of the lower back. 8. Iron deficiency anemia. 9. Chronic recurrent deep venous thromboses 10. Depression. 11. Vitamin D deficiency. 12. Vitamin B12 deficiency. 13. Gastroesophageal reflux disease 14. History obstructive sleep apnea 15. Generalized abdominal pain 16. Peritoneal adhesion 17. Small bowel obstruction 18. Abnormal CT scan PLAN: 1. With findings of her CT, she is at risk for recurrent small bowel obstruction. Robotic lysis of adhesions described including possible small bowel resection. She is high risk for complications with prior gastric bypass. 2. Recommend bariatric labs pre-op. 3. DVT prophylaxis 4. Antibiotic prophylaxis.
[2019-02-27 08:48] VITALS: BP 123/71; PULSE 58; TEMP 98.4; BMI 37.0
== END | disposition home or self-care (01) ==
LOC: BARWHC3 15:22
PROVIDERS: ATTEND Surgery Plastic and Reconstructive Surgery
DX: Z48.815 Encounter for surgical aftercare following surgery on the digestive system (principal); E66.01 Morbid (severe) obesity due to excess calories; E11.9 Type 2 diabetes mellitus without complications; M17.0 Bilateral primary osteoarthritis of knee; D50.9 Iron deficiency anemia, unspecified; I82.599 Chronic embolism and thrombosis of other specified deep vein of unspecified lower extremity; F32.9 Major depressive disorder, single episode, unspecified; E55.9 Vitamin D deficiency, unspecified; E53.8 Deficiency of other specified B group vitamins; K21.9 Gastro-esophageal reflux disease without esophagitis; Z87.09 Personal history of other diseases of the respiratory system; K56.699 Other intestinal obstruction unspecified as to partial versus complete obstruction; K66.0 Peritoneal adhesions (postprocedural) (postinfection); R93.3 Abnormal findings on diagnostic imaging of other parts of digestive tract; Z68.37 Body mass index [BMI] 37.0-37.9, adult; Z87.891 Personal history of nicotine dependence; Z98.84 Bariatric surgery status; Z79.01 Long term (current) use of anticoagulants; Z79.82 Long term (current) use of aspirin; Z79.899 Other long term (current) drug therapy; Z88.8 Allergy status to other drugs, medicaments and biological substances; Z91.018 Allergy to other foods
CPT/HCPCS: 99211

== ENCOUNTER 2019-04-06 09:40 | Day surgery (SDC) | payer MEDICARE, OTHER ==
[2019-04-03 10:53] VITALS: BMI 37.0
--- NOTE | 2019-04-05 15:59 | P.PN ---
Progress Note - Text Progress Note Date: 04/05/19 Message left on telephone regarding impending snowstorm tomorrow. Patient offered for rescheduling or start travel time earlier to make visit.
--- NOTE | 2019-04-05 20:03 | P.GSHP ---
History of Present Illness H&P Date: 04/06/19 DATE OF SERVICE: 04/06/2019 CHIEF COMPLAINT: Followup gastric bypass HISTORY OF PRESENT ILLNESS: Yessy Buchanan is a 53-year-old female who is status post Mynor-en-Y gastric bypass May 24, 2015. She is 4+ years out. She reports 6 weeks of lower abdominal pain. She has history of small bowel obstruction. No constipation. No blood in stools. No alleviating factors. She presents for work up of her abdominal pain. At her height of 5 feet 4-3/4 inch frame, she comes in today weighing 221. Her h ighest weight was 341 pounds. Her ideal body weight is 144 pounds. She has maintained 120 pound weight loss. Body mass index reduced from 57.3 down to 37.1. Percent excess weight loss is 61%. PAST MEDICAL HISTORY: 1. Diabetes type 2, resolved. 2. Osteoarthritis of the bilateral knees. 3. Osteoarthritis of the lower back. 4. Iron deficiency anemia. 5. Chronic recurrent deep venous thromboses over 4 events. 6. Depression. 7. Vitamin D deficiency. 8. Vitamin B12 deficiency. 9. History of brain disorder with cysts requiring surgery. 10. Gastroesophageal reflux disease, resolved. 11. History obstructive sleep apnea, improved. 12. Morbid obesity next calories, BMI 57.3 initial PAST SURGICAL HISTORY: 1. She reports lithotripsy for kidney stones at least 5 times. 2. Hysterectomy. 3. Tonsillectomy. 4. Bilateral cataract eye extraction. 5. Removal of benign growths along the scalp. 6. History of fatty tumor removal from the left shoulder. 7. Status post Mynor-en-Y gastric bypass. 8. Colonoscopy. 9. Panniculectomy MEDICATIONS: 1. Xarelto. 2. MiraLax. 3. Paxil. 4. Multivitamin. 5. Vitamin D. 6. Calcium citrate. 7. Dulcolax. 8. Aspirin. ALLERGIES: 1. COMPAZINE. 2. GEODON. 3. TOMATOES. SOCIAL HISTORY: Former tobacco user. FAMILY HISTORY: Pertinent for morbid obesity including gallbladder disease. REVIEW OF SYSTEMS: CONSTITUTIONAL: Highest weight of 341 pounds for a 5 foot 4-3/4 inches. [place] body weight of 149 pounds. Body mass index reduced from 57.3 ENDOCRINE: Resolved diabetes type 2. No thyroid disorders. GASTROINTESTINAL: No reports of dumping syndrome. Gastroesophageal reflux disease, resolved. RESPIRATORY: Improved obstructive sleep apnea. No asthma MUSCULOSKELETAL: Reports diffuse osteoarthritis of the lower back. NEURO: Reports dizziness. Past history of stroke PSYCH: History of depressive disorder. No anxiety. HEMATOLOGIC: History of prior blood clots, which she has undergone evaluation with her mounting machine operator and has been advised to continue during the perioperative period. HEENT: Denies any troubles with vision or hearing. CARDIOVASCULAR: History of heart arrhythmia. SKIN: History of panniculitis now resolved with panniculectomy PHYSICAL EXAM: VITAL SIGNS: 5 foot 4-3/4 inch frame, 221 pounds. Body mass index is 37.1 ABDOMEN: No peritonitis. Soft nontender. MUSCULOSKELETAL: No clubbing, cyanosis, or edema. NEURO: No focal or lateralizing signs. Cranial nerves II through XII grossly within normal limits. GENERAL: Well-developed, pleasant female in no acute distress. CHEST: Nonlabored respirations. Equal bilateral excursions. CARDIOVASCULAR: Regular rate and rhythm. HEENT: No sclerae icterus. Extraocular movements are grossly intact. Moist buccal mucosa. NECK: Supple without lymphadenopathy. PSYCH: Appropriate affect. Alert and oriented to person, place and time. ASSESSMENT: 1. Morbid obesity due to excess caloric intake. 2. Body mass index reduced from 57.3 down to 37.1 3. Status post Mynor-en-Y gastric bypass. 4. Dysphagia 5. Diabetes type 2, 6. Osteoarthritis of the bilateral knees. 7. Osteoarthritis of the lower back. 8. Iron deficiency anemia. 9. Chronic recurrent deep venous thromboses 10. Depression. 11. Vitamin D deficiency. 12. Vitamin B12 deficiency. 13. Gastroesophageal reflux disease 14. History obstructive sleep apnea 15. Generalized abdominal pain 16. Peritoneal adhesion 17. Chronic anticoagulant therapy PLAN: 1. Robotic lysis of adhesions were described in detail including risk of injury to the intestine, need for further surgery, and open technique. 2. DVT prophylaxis. 3. Antibiotic prophylaxis. Past Medical History Past Medical History: Diabetes Mellitus, Deep Vein Thrombosis (DVT), Pulmonary Embolus (PE), Sleep Apnea/CPAP/BIPAP Additional Past Medical History / Comment(s): abdominal pain, hx ESTHER ANKLE/foot swelling, heart murmur, kidney stones, no longer wears O2 at night, DOES NOT USE CPAP History of Any Multi-Drug Resistant Organisms: None Reported Past Surgical History: Bariatric Surgery, Hysterectomy, Tonsillectomy Additional Past Surgical History / Comment(s): cataract removal both eyes, benign growths removed from head, fatty tumor removed from left shoulder, lithotripsy x5, Mynor-en Y-Gastric bypass 05-24-2015, panniculectomy 04-08-17 Past Anesthesia/Blood Transfusion Reactions: Motion Sickness, Postoperative Nausea & Vomiting (PONV) Additional Past Anesthesia/Blood Transfusion Reaction / Comment(s): BROTHER HAS PROBLEMS, SLOW AWAKENING FROM ANESTHESIA.no hx blood transfusion Smoking Status: Former smoker - Past Family History Father History Unknown: Yes Family Medical History: No Reported History Mother Family Medical History: Diabetes Mellitus, Hypertension Additional Family Medical History / Comment(s): mental disorder, alcoholism, Medications and Allergies Home Medications Medication Instructions Recorded Confirmed Type Aspirin 81 mg PO DAILY 12/08/14 04/03/19 History Multivitamins, Thera [Multivitamin] 1 tab PO DAILY 07/06/15 04/03/19 History PARoxetine HCL [Paxil] 30 mg PO HS 07/18/16 04/03/19 History Calcium Citrate 1,200 mg PO DAILY 10/03/16 04/03/19 History Allergies Allergy/AdvReac Type Severity Reaction Status Date / Time metoclopramide HCl AdvReac SEVERE Verified 04/03/19 10:45 [From Reglan] ANXIETY prochlorperazine edisylate AdvReac anxiety Verified 04/03/19 10:45 [From Compazine] severe prochlorperazine maleate AdvReac anxiety Verified 04/03/19 10:45 [From Compazine] severe ziprasidone HCl [From Geodon] AdvReac anxiety Verified 04/03/19 10:45 severe ziprasidone mesylate AdvReac anxiety Verified 04/03/19 10:45 [From Geodon] severe bleach AdvReac Dyspnea Uncoded 04/03/19 10:45 tomatoes AdvReac Itching Uncoded 04/03/19 10:45
[~2019-04-06 09:40] MED LIST changes: +DEXAMETHASONE SOD PHOSPHATE 10 MG/ML 1 ML VIAL IV ONE; +ENOXAPARIN 40 MG/0.4 ML SYRINGE SQ STA; -GLYCOPYRROLATE 0.2 MG/ML 2 ML VIAL ONE; -KETAMINE 10 MG/ML 20 ML VIAL ONE; +LIDOCAINE 1% 20 ML VIAL (10MG/ML) FOR IV START INTRADERMA PRN; -LIDOCAINE 1% INJ 10MG/ML (20 ML MDV) ONE; -PROPOFOL 10 MG/ML 20 ML VIAL IV ONE; +SCOPOLAMINE 1.5MG/72HR PATCH TRANSDERM ONE
[2019-04-06] MEDS: ONDANSETRON 4 MG/2 ML VIAL IVP ONE ×2 (10:11→14:33)
[2019-04-06] MEDS ORDERED: fentaNYL (PF) 50 MCG/ML 2 ML AMP ONE (11:20)
[2019-04-06] MEDS ORDERED: SUCCINYLCHOLINE CHLORIDE 100 MG/5 ML SYR IV ONE (11:20)
[2019-04-06] MEDS ORDERED: MIDAZOLAM 2 MG/2 ML VIAL ONE (11:20)
[2019-04-06] MEDS ORDERED: GLYCOPYRROLATE 0.2 MG/ML 2 ML VIAL ONE (11:20)
[2019-04-06] MEDS ORDERED: PROPOFOL 10 MG/ML 20 ML VIAL IV ONE (11:20)
[2019-04-06] MEDS ORDERED: LIDOCAINE 1% INJ 10MG/ML (20 ML MDV) ONE (11:20)
[2019-04-06] MEDS ORDERED: NEOSTIGMINE 1 MG/ML 10 ML VIAL ONE (11:20)
[2019-04-06] MEDS ORDERED: ROCURONIUM BROMIDE 10 MG/ML 10 ML VIAL IV ONE (11:20)
[2019-04-06] MEDS ORDERED: LIDOCAINE 1%-EPI 1:100,000 20 ML VIAL SUBMUCOSAL ONE (11:54)
[2019-04-06] MEDS ORDERED: LACTATED RINGERS 1,000 ML IV ONE (14:01)
[2019-04-06 14:24] LABS: Glucose,Whole Blood 200 mg/dL (75-99)
[2019-04-06] MEDS: HYDROmorphone 0.5 MG/0.5 ML SYRINGE IVP PRN ×2 (14:36→14:46)
--- NOTE | 2019-04-06 14:36 | P.OP ---
Date of Procedure: 04/06/19 Description of Procedure: Date of Procedure: 04/06/19 SURGEON: JAIDA LAWLER MD PREOPERATIVE DIAGNOSES: 1. History of small bowel obstruction 2. Abnormal CT scan for internal hernia 3. Peritoneal adhesions 4. Morbid obesity due to excess caloric intake. 5. Body mass index reduced from 57.3 down to 37.1 6. Status post Mynor-en-Y gastric bypass. 7. Iron deficiency anemia. 8. Depression. 9. Chronic anticoagulant therapy POSTOPERATIVE DIAGNOSES: 1. History of small bowel obstruction 2. Abnormal CT scan for internal hernia 3. Peritoneal adhesions 4. Morbid obesity due to excess caloric intake. 5. Body mass index reduced from 57.3 down to 37.1 6. Status post Mynor-en-Y gastric bypass. 7. Iron deficiency anemia. 8. Depression. 9. Chronic anticoagulant therapy OPERATION: 1. Robotic-assisted da Antonino Xi laparoscopic with lysis of adhesions over 1 hr minutes. 2. Robotic-assisted da Antonino Xi laparoscopic reduction of small bowel volvulus and closure of internal hernias x 2. COMPLICATIONS: None. Anesthesia: GETA, local Estimated Blood Loss (ml): 5 Pathology: none sent Condition: stable Disposition: same day Operative Findings: 1. Reopening of jejunojejunostomy mesenteric defect due to moderate weight loss, over 120 pounds 2. Internal hernia of jejunojejunostomy mesenteric defect with small bowel volvulus completely reduced without small bowel ischemia or strangulation. 3. Mesenteric defects of jejunojejunostomy and Rankin defect oversewn using 2-0 VLOC 4. Highly redundant sigmoid colon with extension to the right upper quadrant 5. Appendix viable and identified at right upper mid quadrant. INDICATIONS: The patient is a 54-year-old female who presents with recent small bowel obstruction and abnormal computed tomography scan with internal hernia. Surgical intervention with diagnostic laparoscopy, lysis of adhesions were described. Robotic assisted laparoscopic approach was described. Benefits and risks of the procedure including but not limited to bleeding, infection, injury to the small bowel with small bowel resection, additional surgeries were d escribed. Informed consent was obtained. DESCRIPTION OF PROCEDURE: Patient was brought to the operating room, placed in supine position. After general induction, the abdomen had been prepped and draped in standard sterile fashion. The robotic da Antonino XI system was primed. After a timeout protocol was performed, the patient had been prepped and draped in standard sterile fashion. The robot was docked along the right lateral abdomen. The patient was repositioned in with right side up. Please note prior to docking of the robot; however, a 5 mm 0 degrees laparoscopic trocar entry was performed along the left upper quadrant. The abdomen was insufflated to 15 mmHg pressure which she tolerated well. Diagnostic laparoscopy was performed. Next, three 8 mm robotic ports were placed along the upper abdominal wall. Please note that the ports were placed at least 10 to 15 cm away from the target anatomy. Instruments including graspers and vessel sealer were interchanged by the assist ant. I had sat at the console. No evidence of incisional hernia was identified. The small bowel from the mynor limb to distal ileum was inspected demonstrating re-opening of the jejunojejunostomy mesenteric defect after moderate weight loss, over 120 pounds. The small bowel was investigated from the terminal ileum to the ligament of Treitz with finding of redundant mesentery with active small bowel volvulus involving the common channel into the jejunojejunostomy mesenteric defect. Abnormal adhesions to the jejunojejunostomy was identified and divided. The small bowel volvulus were reduced. Adhesions along the epigastrium linvolving the transverse colon to the mynor limb with an active internal hernia was lysed using vessel sealer. No small bowel herniation into the Rankin's defect found. The mesenteric defects of jejunojejunostomy and Rankin defects were oversewn using 2-0 VLOC. Seperately, highly redundant sigmoid colon with extension to the right upper quadrant was identified and undisturbed. The appendix was viable and identified at right upper mid quadrant and also undisturbed. Final inspection of the small bowel including mynor limb and mesenteric defects confirmed closure of all internal hernias including reduction of any small bowel volvulus. The robot was undocked. All pneumoperitoneum instruments were evacuated from the abdominal cavity. The incisions were reapproximated using 4-0 Monocryl in an interrupted subcuticular fashion. Please note along the trocar sites, local anesthetic was placed as a field block prior to insertion of all instruments. Exofin was applied to the skin. At the end of the procedure needle, sponge, and instrument count had been verified correct by the medical or surgical instrument maker. The patient was transferred to postanesthesia care unit in stable condition. Plan - Discharge Summary Discharge Rx Participant: Yes New Discharge Prescriptions: New HYDROcodone/APAP 5-325MG [[place] 5-325] 1 tab PO Q6HR PRN 3 Days #10 tab PRN Reason: Pain Acetaminophen Tab [Tylenol Tab] 500 mg PO Q6H PRN #30 tablet PRN Reason: Pain Tamsulosin [Flomax] 0.4 mg PO DAILY #7 cap Continue Aspirin 81 mg PO DAILY Multivitamins, Thera [Multivitamin (formulary)] 1 tab PO DAILY PARoxetine HCL [Paxil] 30 mg PO HS Calcium Citrate 1,200 mg PO DAILY Discharge Medication List Aspirin 81 mg PO DAILY 12/08/14 [History] Multivitamins, Thera [Multivitamin (formulary)] 1 tab PO DAILY 07/06/15 [History] PARoxetine HCL [Paxil] 30 mg PO HS 07/18/16 [History] Calcium Citrate 1,200 mg PO DAILY 10/03/16 [History] Acetaminophen Tab [Tylenol Tab] 500 mg PO Q6H PRN #30 tablet 04/06/19 [Rx] HYDROcodone/APAP 5-325MG [[place] 5-325] 1 tab PO Q6HR PRN 3 Days #10 tab 04/06/19 [Rx] Tamsulosin [Flomax] 0.4 mg PO DAILY #7 cap 04/07/19 [Rx] Follow [facility]ment[facility] [place] [facility] - 04/08/19 1:15 pm Patient Instructions/Handouts: Lysis of Abdominal Adhesions (DC), Bowel Obstruction (DC) Activity/Diet/Wound Care/Special Instructions: No lifting over 10 pounds in 2 weeks, April 20. May shower. No bath tub soaks until April 20. Diet as tolerated. No driving while on narcotics. Discharge Disposition: HOME SELF-CARE
[2019-04-06] MEDS ORDERED: PROMETHAZINE INJ 25 MG/ML 1 ML VIAL IVPB ONE (15:09)
[2019-04-06 15:37] LABS: Glucose,Whole Blood 161 mg/dL (75-99)
[2019-04-06] MEDS ORDERED: HYDROcodone/APAP 5-325MG 1 EACH TAB PO PRN (16:12)
[2019-04-06] MEDS ORDERED: TAMSULOSIN 0.4 MG CAP.ER.24H PO STA (16:13)
--- NOTE | 2019-04-06 16:14 | P.PN ---
Progress Note - Text Progress Note Date: 04/06/19 Patient has pre-existing history of postoperative urinary retention. Also, patient very somnolent. Outpatient management overnight in the hospital advised
[2019-04-06] MEDS: SODIUM CHLORIDE 0.9% 1,000 ML IV SCH (17:51)
[2019-04-06] MEDS: SIMETHICONE 40 MG/0.6 ML DROPS 2,000 MG/30 ML BOTTLE PO SCH ×2 (17:52→21:34)
[2019-04-06 21:07] LABS: Glucose,Whole Blood 128 mg/dL (75-99)
[2019-04-06] MEDS: ACETAMINOPHEN TAB 325 MG TAB PO PRN (22:13)
[2019-04-07 01:26] VITALS: PULSE 60
[2019-04-07] MEDS: SODIUM CHLORIDE 0.9% 1,000 ML IV SCH ×2 (03:20→14:57)
[2019-04-07 06:56] LABS: Glucose,Whole Blood 94 mg/dL (75-99)
[2019-04-07] MEDS: ACETAMINOPHEN TAB 325 MG TAB PO PRN (07:27)
[2019-04-07] MEDS: SIMETHICONE 40 MG/0.6 ML DROPS 2,000 MG/30 ML BOTTLE PO SCH ×2 (07:30→14:57)
[2019-04-07] MEDS ORDERED: TAMSULOSIN 0.4 MG CAP.ER.24H PO SCH (08:30)
[2019-04-07] MEDS ORDERED: ENOXAPARIN 40 MG/0.4 ML SYRINGE SQ SCH (09:00)
[2019-04-07 09:06] VITALS: BP 127/80; RESP 16; TEMP 98.2
--- NOTE | 2019-04-07 13:14 | P.DS ---
Providers Expected date of discharge: 04/07/19 Attending physician: Blanka Cota Primary care physician: Paco Hinton [facility] Hospital Course: 54-year-old female who underwent robotic lysis of adhesions and reduction and closure of internal hernia. Patient has a history of postoperative urinary retention. She was admitted to the hospital overnight for observation. Patient is been voiding without difficulty. She was placed on Flomax. Post void Bladder scan completed: 41 mL. Patient is tolerating diet without nausea or vomiting. Pain is controlled on oral medications. She is stable for discharge home today. Please see EMR for further hospital course details Discharge diagnosis 1. History of bowel obstruction, abnormal computed tomography scan for internal hernia, peritoneal adhesions, status post robotic lysis of adhesions and reduction and closure of internal hernias 2. History of postoperative urinary retention Nurse practitioner note has been reviewed by physician. Signing provider agrees with the documented findings, assessment, and plan of care. Plan - Discharge Summary Discharge Rx Participant: Yes New Discharge Prescriptions: New HYDROcodone/APAP 5-325MG [[place] 5-325] 1 tab PO Q6HR PRN 3 Days #10 tab PRN Reason: Pain Acetaminophen Tab [Tylenol Tab] 500 mg PO Q6H PRN #30 tablet PRN Reason: Pain Tamsulosin [Flomax] 0.4 mg PO DAILY #7 cap Continue Aspirin 81 mg PO DAILY Multivitamins, Thera [Multivitamin (formulary)] 1 tab PO DAILY PARoxetine HCL [Paxil] 30 mg PO HS Calcium Citrate 1,200 mg PO DAILY Discharge Medication List Aspirin 81 mg PO DAILY 12/08/14 [History] Multivitamins, Thera [Multivitamin (formulary)] 1 tab PO DAILY 07/06/15 [Histo ry] PARoxetine HCL [Paxil] 30 mg PO HS 07/18/16 [History] Calcium Citrate 1,200 mg PO DAILY 10/03/16 [History] Acetaminophen Tab [Tylenol Tab] 500 mg PO Q6H PRN #30 tablet 04/06/19 [Rx] HYDROcodone/APAP 5-325MG [[place] 5-325] 1 tab PO Q6HR PRN 3 Days #10 tab 04/06/19 [Rx] Tamsulosin [Flomax] 0.4 mg PO DAILY #7 cap 04/07/19 [Rx] Follow up [facility]ment(s[facility] [place] [facility] - 04/08/19 1:15 pm Patient Instructions/Handouts: Lysis of Abdominal Adhesions (DC), Bowel Obstruction (DC) Activity/Diet/Wound Care/Special Instructions: No lifting over 10 pounds in 2 weeks, April 20. September shower. No bath tub soaks until April 20. Diet as tolerated. No driving while on narcotics. Discharge Disposition: HOME SELF-CARE
== END 2019-04-07 13:12 | disposition home or self-care (01) ==
LOC: OR 09:40 → 4SSUR 14:21 → OR 04-07 13:12
PROVIDERS: ATTEND Surgery Plastic and Reconstructive Surgery
DX: K45.8 Other specified abdominal hernia without obstruction or gangrene (principal); K66.0 Peritoneal adhesions (postprocedural) (postinfection); E66.01 Morbid (severe) obesity due to excess calories; Z68.37 Body mass index [BMI] 37.0-37.9, adult; Z87.19 Personal history of other diseases of the digestive system; Z98.84 Bariatric surgery status; D50.9 Iron deficiency anemia, unspecified; F32.9 Major depressive disorder, single episode, unspecified; Z79.01 Long term (current) use of anticoagulants; Q43.8 Other specified congenital malformations of intestine; K56.2 Volvulus; R13.10 Dysphagia, unspecified; E11.9 Type 2 diabetes mellitus without complications; M17.0 Bilateral primary osteoarthritis of knee; M47.896 Other spondylosis, lumbar region; I82.509 Chronic embolism and thrombosis of unspecified deep veins of unspecified lower extremity; E55.9 Vitamin D deficiency, unspecified; E53.8 Deficiency of other specified B group vitamins; K21.9 Gastro-esophageal reflux disease without esophagitis; G47.33 Obstructive sleep apnea (adult) (pediatric); R42 Dizziness and giddiness; R60.0 Localized edema; F39 Unspecified mood [affective] disorder; Z98.0 Intestinal bypass and anastomosis status; Z87.448 Personal history of other diseases of urinary system; Z79.82 Long term (current) use of aspirin; Z79.899 Other long term (current) drug therapy; Z87.891 Personal history of nicotine dependence; Z88.8 Allergy status to other drugs, medicaments and biological substances; Z91.018 Allergy to other foods; Z91.048 Other nonmedicinal substance allergy status; Z86.2 Personal history of diseases of the blood and blood-forming organs and certain disorders involving the immune mechanism; Z86.69 Personal history of other diseases of the nervous system and sense organs; Z98.890 Other specified postprocedural states; Z87.442 Personal history of urinary calculi; Z90.710 Acquired absence of both cervix and uterus; Z90.89 Acquired absence of other organs; Z98.42 Cataract extraction status, left eye; Z98.41 Cataract extraction status, right eye; Z87.2 Personal history of diseases of the skin and subcutaneous tissue; Z86.73 Personal history of transient ischemic attack (TIA), and cerebral infarction without residual deficits; Z86.79 Personal history of other diseases of the circulatory system; Z86.711 Personal history of pulmonary embolism; Z87.898 Personal history of other specified conditions; Z83.49 Family history of other endocrine, nutritional and metabolic diseases; Z83.79 Family history of other diseases of the digestive system; Z84.89 Family history of other specified conditions; Z83.3 Family history of diabetes mellitus; Z82.49 Family history of ischemic heart disease and other diseases of the circulatory system; Z81.8 Family history of other mental and behavioral disorders; Z81.1 Family history of alcohol abuse and dependence
CPT/HCPCS: 44238; 81025; J2250; J1100; J2550; J2710; J0690; J2405; J2001; J1650; J3010; J0330; J2704; J1170

== ENCOUNTER → 2019-04-08 | Outpatient (CLI) | payer MEDICARE, OTHER ==
[2019-04-08 13:50] VITALS: BP 135/78; PULSE 60; TEMP 98.1; BMI 38.9
--- NOTE | 2019-04-08 14:02 | P.PN ---
Subjective Progress Note Date: 04/08/19 DATE OF SERVICE: 04/08/2019 CHIEF COMPLAINT: Followup gastric bypass HISTORY OF PRESENT ILLNESS: Yessy Buchanan is a 54-year-old female who is status post lysis of adhesions 04/06/2019. She is POD 2. She is feeling well. She is passing flatus. She has no further abdominal pain. At her height of 5 feet 4-3/4 inch frame, she comes in weighing 232 pounds from 221 pounds from 1 month ago. She has gained 11 pounds in 1 month. Her highest weight was 341 pounds. Her ideal body weight is 144 pounds. She has maintained 109 pound weight loss. Body mass index reduced from 57.3 down to 38.9. Percent excess weight loss is 56%. PHYSICAL EXAM: VITAL SIGNS: 5 foot 4-3/4 inch frame, 232 pounds. Body mass index is 38.9 Vital Signs Temp 98.1 F 04/08/19 13:43 Pulse 60 04/08/19 13:43 Resp BP 135/78 04/08/19 13:43 Pulse Ox ABDOMEN: No peritonitis. Soft nontender. No hernia. Incisions are clean, dry and intact. MUSCULOSKELETAL: No clubbing, cyanosis, or edema. NEURO: No focal or lateralizing signs. Cranial nerves II through XII grossly within normal limits. GENERAL: Well-developed, pleasant female in no acute distress. CHEST: Nonlabored respirations. Equal bilateral excursions. CARDIOVASCULAR: Regular rate and rhythm. HEENT: No sclerae icterus. Extraocular movements are grossly intact. Moist buccal mucosa. NECK: Supple without lymphadenopathy. PSYCH: Appropriate affect. Alert and oriented to person, place and time. SKIN: Well perfused. Good skin turgor. ASSESSMENT: 1. Morbid obesity due to excess caloric intake. 2. Body mass index reduced from 57.3 down to 38.9 3. Status post Mynor-en-Y gastric bypass. 4. Dysphagia 5. Diabetes type 2, 6. Osteoarthritis of the bilateral knees. 7. Osteoarthritis of the lower back. 8. Iron deficiency anemia. 9. Chronic recurrent deep venous thromboses 10. Depression. 11. Vitamin D deficiency. 12. Vitamin B12 deficiency. 13. Gastroesophageal reflux disease 14. History obstructive sleep apnea 15. Generalized abdominal pain 16. Peritoneal adhesion 17. Small bowel obstruction PLAN: 1. She is going well. 2. Follow up as needed. Objective - Vital Signs Vital signs: Vital Signs Temp 98.1 F 04/08/19 13:43 Pulse 60 04/08/19 13:43 Resp BP 135/78 04/08/19 13:43 Pulse Ox Intake & Output 04/07/19 04/08/19 04/08/19 18:59 06:59 18:59 Weight 105.233 kg
--- NOTE | 2019-04-08 14:05 | P.PN ---
Progress Note - Text Progress Note Date: 04/08/19 To whom it may concern: Yessy Buchanan is under my surgical care. She may return to work without restrictions on April 20. Regards, Blanka Cota MD FACS
== END | disposition home or self-care (01) ==
LOC: BARWHC3 12:36
PROVIDERS: ATTEND Surgery Plastic and Reconstructive Surgery
DX: Z48.89 Encounter for other specified surgical aftercare (principal); E66.01 Morbid (severe) obesity due to excess calories; E11.9 Type 2 diabetes mellitus without complications; M17.0 Bilateral primary osteoarthritis of knee; D50.9 Iron deficiency anemia, unspecified; I82.409 Acute embolism and thrombosis of unspecified deep veins of unspecified lower extremity; F32.9 Major depressive disorder, single episode, unspecified; E55.9 Vitamin D deficiency, unspecified; K21.9 Gastro-esophageal reflux disease without esophagitis; G47.33 Obstructive sleep apnea (adult) (pediatric); K66.0 Peritoneal adhesions (postprocedural) (postinfection); K56.609 Unspecified intestinal obstruction, unspecified as to partial versus complete obstruction; E53.8 Deficiency of other specified B group vitamins; R10.84 Generalized abdominal pain; R13.10 Dysphagia, unspecified; Z68.38 Body mass index [BMI] 38.0-38.9, adult; Z98.84 Bariatric surgery status
CPT/HCPCS: 99211

== ENCOUNTER → 2019-10-21 | Outpatient (CLI) | payer MEDICARE, OTHER ==
[2019-10-21 14:18] LABS: HCT 40.9 % (34.0-46.0); HGB 13.1 gm/dL (11.4-16.0); Hypochromasia Slight; MCH 29.1 pg (25.0-35.0); MCHC 32.1 g/dL (31.0-37.0); MCV 90.6 fL (80.0-100.0); Mean Platelet Volume 9.4; Platelet Count 238 k/uL (150-450); RBC 4.51 m/uL (3.80-5.40); RDW 14.1 % (11.5-15.5); WBC 6.3 k/uL (3.8-10.6)
[2019-10-21 14:26] LABS: Partial Thromboplastin Time 24.2 sec (22.0-30.0); Prothrombin Time 10.2 sec (9.0-12.0)
[2019-10-21 14:49] VITALS: BP 120/66; PULSE 67; RESP 16; TEMP 98.8; BMI 38.5
--- NOTE | 2019-10-21 15:03 | P.PN ---
Subjective Progress Note Date: 10/21/19 DATE OF SERVICE: 10/21/2019 CHIEF COMPLAINT: Followup gastric bypass HISTORY OF PRESENT ILLNESS: Yessy Buchanan is a 54-year-old female who is status post Mynor-en-Y gastric bypass May 24, 2015. She is 4.5 years out. She has lost weight since her last visit. She reports snacking and drinking pop. She is drinking diet mountain dew for caffeine. She reports not able to exercise. She needs a left knee replacement. At her height of 5 feet 4-3/4 inch frame, she comes in weighing 229 pounds from 232 pounds 6 months ago. She has lost 3 pounds in 6 months. Her highest weight was 341 pounds. Her ideal body weight is 144 pounds. She has maintained 111 pound weight loss. Body mass index reduced from 57.3 down to 38.5. Percent excess weight loss is 57%. PHYSICAL EXAM: VITAL SIGNS: 5 foot 4-3/4 inch frame, 229 pounds. Body mass index is 38.5 Vital Signs Temp 98.8 F 10/21/19 14:46 Pulse 67 10/21/19 14:46 Resp 16 10/21/19 14:46 BP 120/66 10/21/19 14:46 Pulse Ox ABDOMEN: No peritonitis. Soft nontender. MUSCULOSKELETAL: No clubbing, cyanosis, or edema. NEURO: No focal or lateralizing signs. Cranial nerves II through XII grossly within normal limits. GENERAL: Well-developed, pleasant female in no acute distress. CHEST: Nonlabored respirations. Equal bilateral excursions. CARDIOVASCULAR: Regular rate and rhythm. HEENT: No sclerae icterus. Extraocular movements are grossly intact. Moist buccal mucosa. NECK: Supple without lymphadenopathy. PSYCH: Appropriate affect. Alert and oriented to person, place and time. SKIN: Well perfused. Good skin turgor. ASSESSMENT: 1. Morbid obesity due to excess caloric intake. 2. Body mass index reduced from 57.3 down to 38.5 3. Status post Mynor-en-Y gastric bypass. 4. Dysphagia 5. Diabetes type 2, 6. Osteoarthritis of the bilateral knees. 7. Osteoarthritis of the lower back. 8. Iron deficiency anemia. 9. Chronic recurrent deep venous thromboses 10. Depression. 11. Vitamin D deficiency. 12. Vitamin B12 deficiency. 13. Gastroesophageal reflux disease 14. History obstructive sleep apnea 15. Generalized abdominal pain 16. Peritoneal adhesion 17. Small bowel obstruction PLAN: 1. Recommend high protein and low carb diet to address weight loss. 2. Recommend increase water to 90+ ounces daily. 3. Recommend chewable protein. Objective - Vital Signs Vital signs: Vital Signs Temp 98.8 F 10/21/19 14:46 Pulse 67 10/21/19 14:46 Resp 16 10/21/19 14:46 BP 120/66 10/21/19 14:46 Pulse Ox Intake & Output 10/20/19 10/21/19 10/21/19 18:59 06:59 18:59 Weight 104.099 kg - Labs CBC & Chem 7: 10/21/19 13:43 10/21/19 13:43
[2019-10-21 23:03] LABS: ALT 39 U/L (8-44); AST 38 U/L (13-35); African American GFR (CKD) 114.6 (60.0-200.0); Albumin/Globulin Ratio 1.68 (1.60-3.17); Alkaline Phosphatase 100 U/L (41-126); BUN/Creat Ratio 22.86 Ratio (12.00-20.00); Calcium 9.5 mg/dL (8.7-10.3); Carbon Dioxide 31.9 mmol/L (21.6-31.8); Chloride 105 mmol/L (96-109); Chol/HDL Ratio 2.49; Cholesterol 169 mg/dL (0-200); Globulin 2.5 g/dL (1.6-3.3); Glucose 102 mg/dL (70-110); Iron 85 ug/dL (50-170); LDL Cholesterol,Calculated 80.4 mg/dL (0.0-131.0); Magnesium 1.7 mg/dL (1.5-2.4); Non-African American GFR(CKD) 98.9 (60.0-200.0); Potassium 4.4 mmol/L (3.5-5.5); Sodium 146 mmol/L (135-145); Total Bilirubin 0.4 mg/dL (0.3-1.2); Total Iron Binding Capacity 332 ug/dL (228-460); Total Protein 6.7 g/dL (6.2-8.2)
[2019-10-21 23:11] LABS: Ferritin 72.8 ng/mL (10.0-291.0)
[2019-10-21 23:54] LABS: Folate, Serum >24.0 ng/mL
[2019-10-22 01:05] LABS: Hemoglobin A1C 5.7 % (4.0-6.0)
[2019-10-22 14:51] LABS: Zinc, Serum 48 ug/dL (60-130)
[2019-10-23 07:01] LABS: Vit B1(Thiamine) 74 ug/L (38-122)
[2019-10-23 10:41] LABS: Vitamin A 49 ug/dL (38-106)
[2019-10-24 23:27] LABS: Selenium 88 mcg/L (63-160)
== END | disposition home or self-care (01) ==
LOC: BARWHC3 13:31
PROVIDERS: ATTEND Surgery Plastic and Reconstructive Surgery
DX: Z48.815 Encounter for surgical aftercare following surgery on the digestive system (principal); E66.01 Morbid (severe) obesity due to excess calories; E11.9 Type 2 diabetes mellitus without complications; M17.0 Bilateral primary osteoarthritis of knee; D50.9 Iron deficiency anemia, unspecified; I82.509 Chronic embolism and thrombosis of unspecified deep veins of unspecified lower extremity; F32.9 Major depressive disorder, single episode, unspecified; E55.9 Vitamin D deficiency, unspecified; E53.8 Deficiency of other specified B group vitamins; K21.9 Gastro-esophageal reflux disease without esophagitis; Z87.09 Personal history of other diseases of the respiratory system; R10.84 Generalized abdominal pain; K66.0 Peritoneal adhesions (postprocedural) (postinfection); K56.609 Unspecified intestinal obstruction, unspecified as to partial versus complete obstruction; Z68.38 Body mass index [BMI] 38.0-38.9, adult; Z98.84 Bariatric surgery status
CPT/HCPCS: 84255; 84134; 84425; 80061; 80053; 82607; 82728; 82525; 82746; 83540; 83550; 83735; 84100; 84443; 84590; 84630; 85027; 85610; 85730; 82306; 83970; 83036; 36415; G0463; 99211

== ENCOUNTER → 2020-06-29 | Outpatient (CLI) | payer MEDICARE, OTHER ==
[2020-06-29 14:45] VITALS: BP 139/79; PULSE 74; RESP 18; TEMP 98.7; BMI 41.4
--- NOTE | 2020-06-29 15:07 | P.PN ---
Subjective Progress Note Date: 06/29/20 DATE OF SERVICE: 06/29/2020 CHIEF COMPLAINT: Followup gastric bypass HISTORY OF PRESENT ILLNESS: Yessy Buchanan is a 55-year-old female who is status post Mynor-en-Y gastric bypass May 24, 2015. She is over 5 years out. She comes in with 40 pound weight gain over 2 years. She reports lower abdominal pain with sitting down. She reports new crampy abdominal pain of the lower abdomen for less than 1 month. No reports of nausea and vomiting. She has past history of small bowel obstruction. She comes in with change in bowel habits. At her height of 5 feet 4-3/4 inch frame, she comes in weighing 246 pounds from 229 pounds, 9 months ago. She has gained 17 pounds in 9 months. Her highest weight was 341 pounds. Her ideal body weight is 144 pounds. She has maintained 95 pound weight loss. Body mass index reduced from 57.3 down to 41.4. Percent excess weight loss is 48%. PAST MEDICAL HISTORY: 1. Diabetes type 2, resolved. 2. Osteoarthritis of the bilateral knees. 3. Osteoarthritis of the lower back. 4. Iron deficiency anemia. 5. Chronic recurrent deep venous thromboses over 4 events. 6. Depression. 7. Vitamin D deficiency. 8. Vitamin B12 deficiency. 9. History of brain disorder with cysts requiring surgery. 10. Gastroesophageal reflux disease, resolved. 11. History obstructive sleep apnea, improved. 12. Morbid obesity next calories, BMI 57.3 initial PAST SURGICAL HISTORY: 1. She reports lithotripsy for kidney stones at least 5 times. 2. Hysterectomy. 3. Tonsillectomy. 4. Bilateral cataract eye extraction. 5. Removal of benign growths along the scalp. 6. History of fatty tumor removal from the left shoulder. 7. Status post Mynor-en-Y gastric bypass. 8. Colonoscopy. 9. Panniculectomy 10. Lysis of adhesions MEDICATIONS: Home Medications Medication Instructions Recorded Confirmed Aspirin 81 mg PO DAILY 12/08/14 06/30/20 Multivitamins, Thera [Multivitamin 1 tab PO DAILY 07/06/15 06/30/20 (formulary)] PARoxetine HCL [Paxil] 30 mg PO HS 07/18/16 06/30/20 Calcium Citrate 1,200 mg PO DAILY 10/03/16 06/30/20 Previous Rx's Medication Instructions Recorded Acetaminophen Tab [Tylenol Tab] 500 mg PO Q6H PRN #30 tablet 04/06/19 HYDROcodone/APAP 5-325MG [Baldwin 1 tab PO Q6HR PRN 3 Days #10 tab 04/06/19 5-325] Tamsulosin [Flomax] 0.4 mg PO DAILY #7 cap 04/07/19 ALLERGIES: Allergies Allergy/AdvReac Type Severity Reaction Status Date / Time metoclopramide HCl AdvReac SEVERE Verified 06/30/20 12:36 [From Reglan] ANXIETY prochlorperazine edisylate AdvReac anxiety Verified 06/30/20 12:36 [From Compazine] severe prochlorperazine maleate AdvReac anxiety Verified 06/30/20 12:36 [From Compazine] severe ziprasidone HCl [From Geodon] AdvReac anxiety Verified 06/30/20 12:36 severe ziprasidone mesylate AdvReac anxiety Verified 06/30/20 12:36 [From Geodon] severe bleach AdvReac Dyspnea Uncoded 06/30/20 12:36 tomatoes AdvReac Itching Uncoded 06/30/20 12:36 SOCIAL HISTORY: Former tobacco user. FAMILY HISTORY: Pertinent for morbid obesity including gallbladder disease. REVIEW OF SYSTEMS: CONSTITUTIONAL: Highest weight of 341 pounds for a 5 foot 4-3/4 inches. [place] body weight of 149 pounds. Body mass index reduced from 57.3 ENDOCRINE: Resolved diabetes type 2. No thyroid disorders. GASTROINTESTINAL: No reports of dumping syndrome. Gastroesophageal reflux disease, resolved. RESPIRATORY: Improved obstructive sleep apnea. No asthma MUSCULOSKELETAL: Reports diffuse osteoarthritis of the lower back. NEURO: Reports dizziness. Past history of stroke PSYCH: History of depressive disorder. No anxiety. HEMATOLOGIC: History of prior blood clots, which she has undergone evaluation with her pull over and has been advised to continue during the perioperative period. HEENT: Denies any troubles with vision or hearing. CARDIOVASCULAR: History of heart arrhythmia. SKIN: History of panniculitis now resolved with panniculectomy PHYSICAL EXAM: VITAL SIGNS: 5 foot 4-3/4 inch frame, 246 pounds. Body mass index is 41.4 Vital Signs Temp 98.7 F 06/29/20 14:35 Pulse 74 06/29/20 14:35 Resp 18 06/29/20 14:35 BP 139/79 06/29/20 14:35 Pulse Ox ABDOMEN: No peritonitis. Soft nontender. MUSCULOSKELETAL: No clubbing, cyanosis, or edema. NEURO: No focal or lateralizing signs. Cranial nerves II through XII grossly within normal limits. GENERAL: Well-developed, pleasant female in no acute distress. CHEST: Nonlabored respirations. Equal bilateral excursions. CARDIOVASCULAR: Regular rate and rhythm. HEENT: No sclerae icterus. Extraocular movements are grossly intact. Moist buccal mucosa. NECK: Supple without lymphadenopathy. PSYCH: Appropriate affect. Alert and oriented to person, place and time. SKIN: Well perfused. Good skin turgor. STUDIES: CT of the abdomen and pelvis independently reviewed alongside with her from outside institutional showed no mesenteric swirl of internal hernia. No signs of small bowel dilation suggestive of small bowel obstruction. ASSESSMENT: 1. Morbid obesity due to excess caloric intake. 2. Body mass index reduced from 57.3 down to 41.4 3. Status post Mynor-en-Y gastric bypass. 4. Dysphagia 5. Diabetes type 2, 6. Osteoarthritis of the bilateral knees. 7. Osteoarthritis of the lower back. 8. Iron deficiency anemia. 9. Chronic recurrent deep venous thromboses 10. Depression. 11. Vitamin D deficiency. 12. Vitamin B12 deficiency. 13. Gastroesophageal reflux disease 14. History obstructive sleep apnea 15. Generalized abdominal pain 16. Peritoneal adhesion 17. History of small bowel obstruction PLAN: 1. She reports new lower abdominal pain with recent 30+ pound weight gain. With her history of panniculectomy, recommend weight loss with abdominal wear binder. 2. Recommend two week protein intake. 3. Recommend bariatric metabolic panel 4. Additionally, she has moderate colon with risk of sigmoid volvulus. Objective - Vital Signs Vital signs: Vital Signs Temp 98.7 F 06/29/20 14:35 Pulse 74 06/29/20 14:35 Resp 18 06/29/20 14:35 BP 139/79 06/29/20 14:35 Pulse Ox Intake & Output 06/28/20 06/29/20 06/29/20 18:59 06:59 18:59 Weight 112.037 kg
== END | disposition home or self-care (01) ==
LOC: BARWHC3 14:07
PROVIDERS: ATTEND Surgery Plastic and Reconstructive Surgery
DX: E66.01 Morbid (severe) obesity due to excess calories (principal); R13.10 Dysphagia, unspecified; E11.9 Type 2 diabetes mellitus without complications; M17.0 Bilateral primary osteoarthritis of knee; M47.9 Spondylosis, unspecified; D50.9 Iron deficiency anemia, unspecified; F32.9 Major depressive disorder, single episode, unspecified; R10.9 Unspecified abdominal pain; K66.0 Peritoneal adhesions (postprocedural) (postinfection); E55.9 Vitamin D deficiency, unspecified; E53.8 Deficiency of other specified B group vitamins; K21.9 Gastro-esophageal reflux disease without esophagitis; Z86.59 Personal history of other mental and behavioral disorders; Z68.41 Body mass index [BMI] 40.0-44.9, adult; Z98.84 Bariatric surgery status; Z87.19 Personal history of other diseases of the digestive system; Z88.8 Allergy status to other drugs, medicaments and biological substances; Z91.018 Allergy to other foods; Z79.899 Other long term (current) drug therapy; Z79.891 Long term (current) use of opiate analgesic; Z79.82 Long term (current) use of aspirin; Z90.710 Acquired absence of both cervix and uterus; Z98.890 Other specified postprocedural states
CPT/HCPCS: 99211

== ENCOUNTER → 2021-06-28 | Outpatient (CLI) | payer MEDICARE, OTHER ==
[2021-06-28 13:12] VITALS: BP 108/74; PULSE 76; RESP 16; TEMP 98.5; BMI 38.2
--- NOTE | 2021-06-28 13:48 | P.BASOAP ---
Subjective Progress Note Date: 06/28/21 She has lost 20 pounds. She has mental health new. She has knee replacement. Recommend labs. Needs labs. No belly pain and no dysphagia. On MVI. Protein intake is low. She is under her protein intake, getting 30 g. Needs 65 grams daily. Objective - Vital Signs Vital signs: Vital Signs Temp 98.5 F 06/28/21 13:10 Pulse 76 06/28/21 13:10 Resp 16 06/28/21 13:10 BP 108/74 06/28/21 13:10 Pulse Ox Intake & Output 06/27/21 06/28/21 06/28/21 18:59 06:59 18:59 Weight 103.419 kg Assessment/Plan Plan: Date: 06/28/21 Initial Weight: 154.993 kg Initial BMI: 57.3 Current Weight: 103.419 kg Current BMI: 38.2 Type of Surgery: Total Volume in Band: Previous Volume: Volume Removed: Volume Added: Band Size:
[2021-06-28 15:24] LABS: Partial Thromboplastin Time 24.6 sec (22.0-30.0); Prothrombin Time 11.2 sec (9.0-12.0)
[2021-06-28 19:19] LABS: HCT 40.5 % (37.2-46.3); HGB 12.6 g/dL (12.0-15.0); MCH 27.9 pg (27.0-32.0); MCHC 31.1 g/dL (32.0-37.0); MCV 89.8 fL (80.0-97.0); Mean Platelet Volume 12.5 fL (9.5-12.2); Platelet Count 251 X 10*3/uL (140-440); RBC 4.51 X 10*6/uL (4.10-5.20); RDW 15.5 % (11.5-14.5); WBC 6.01 X 10*3/uL (4.50-10.00)
[2021-06-28 20:46] LABS: % Iron Saturation 17.25 (12.00-45.00); ALT 18 U/L (8-44); AST 15 U/L (13-35); Albumin 4.5 g/dL (3.8-4.9); Albumin/Globulin Ratio 1.75 (1.60-3.17); Alkaline Phosphatase 110 U/L (41-126); BUN/Creat Ratio 22.41 Ratio (12.00-20.00); Blood Urea Nitrogen 14.5 mg/dL (9.0-27.0); Calcium 9.9 mg/dL (8.7-10.3); Carbon Dioxide 25.3 mmol/L (20.0-27.5); Chloride 105 mmol/L (96-109); Globulin 2.6 g/dL (1.6-3.3); Glucose 95 mg/dL (70-110); Iron 54 ug/dL (50-170); Magnesium 2.1 mg/dL (1.5-2.4); Non-African American GFR(CKD) 100.1 (60.0-200.0); Phosphorus 3.6 mg/dL (2.4-5.1); Potassium 4.5 mmol/L (3.5-5.5); Sodium 143 mmol/L (135-145); Total Iron Binding Capacity 311 ug/dL (228-460); Total Protein 7.1 g/dL (6.2-8.2)
[2021-06-28 23:38] LABS: Chol/HDL Ratio 2.58 Ratio; LDL Cholesterol,Calculated 78.5 mg/dL (0.0-131.0); Prealbumin 20.9 mg/dL (18.0-42.0)
[2021-06-29 00:43] LABS: Folate, Serum >20.00 ng/mL (4.40-31.00)
== END | disposition home or self-care (01) ==
LOC: BARWHC3 12:36
PROVIDERS: ATTEND Surgery Plastic and Reconstructive Surgery
DX: E66.01 Morbid (severe) obesity due to excess calories (principal); E89.1 Postprocedural hypoinsulinemia; D50.8 Other iron deficiency anemias; E44.0 Moderate protein-calorie malnutrition; E55.9 Vitamin D deficiency, unspecified; K74.1 Hepatic sclerosis; N19 Unspecified kidney failure; K50.90 Crohn's disease, unspecified, without complications; Z68.38 Body mass index [BMI] 38.0-38.9, adult
CPT/HCPCS: 84255; 84134; 84425; 80061; 80053; 82607; 82728; 82525; 82746; 83540; 83550; 83735; 84100; 84443; 84590; 84630; 85027; 85610; 85730; 82306; 83970; 83036; 36415; G0463; 99211